=== PATIENT | female | born 1990 | race Caucasian/White ===

== ENCOUNTER 2024-04-08 12:25 | Inpatient (IN) | payer OTHER ==
[2024-04-08] MEDS ORDERED: DUONEB 0.5-3 MG/3 ml Neb IH ONE ×2 (12:37→15:28)
[2024-04-08] MEDS: DUONEB 0.5-3 MG/3 ml Neb IH ONE ×2 (12:52→15:46)
--- NOTE | 2024-04-08 12:52 | ERPHSYRPT ---
- History of Present Illness Time Seen by Provider: 04/08/24 12:32 Source: patient Exam Limitations: no limitations Patient Subjective Stated Complaint: cough and shortness of breath Triage Nursing Assessment: Pt brought self to the [facility] and was brought to the ER due to her low oxygen, hypertensive, tachycardic, hypoxic, denies pain, cough with whitish/yellowish sputum, reports mild chest pain, pulses normal, skin n/w/d, diminished lung sounds Physician History: 34-year-old female with history of tobacco use presented in the ER with complaints of increasing shortness of breath and cough for 2 weeks. Patient reports initially dry cough and now having clear to white frothy sputum moderate in amount. Patient reports feeling shortness of breath with activity. She went to [facility] where her oxygen saturation was in low 70s. She has a saturation of 79% on presentation in the ER with diffuse wheezing all over. Denies any history of asthma or COPD. No fever or chills reported. Denies any history of lower extremity swellings/DVT/PEs, use of control/hormone pills. Allergies/Adverse Reactions: cephalexin [From Keflex] Adverse Reaction (Verified 04/08/24 12:47) Vomiting Home Medications: No Reportable Medications [No Reported Medications] 04/08/24 [History] Travel Risk - International Travel Have you traveled outside of the country in past 3 weeks: No - Emerging Infectious Disease Are you exhibiting symptoms associated with any current EIDs: Yes Symptoms: Cough: New Onset, Shortness of Breath - Review of Systems Constitutional: Fatigue Eyes: No Symptoms Ears, Nose, & Throat: No Symptoms Respiratory: Cough, Dyspnea, Wheezing Cardiac: No Symptoms Abdominal/Gastrointestinal: No Symptoms Musculoskeletal: No Symptoms Skin: No Symptoms Neurological: No Symptoms Endocrine: No Symptoms Hematologic/Lymphatic: No Symptoms Significant Family History: no pertinent family hx - Female History Hx Now: No - Social History Smoking Status: Current every day smoker Exposure to second hand smoke: Yes Drug Use: none - Social Determinants of Health Will the patient participate in the screening: Yes Do you worry about a steady place to live?: No Do you have any problems with any of the following?: No known problems In the past 12 months,have you had to go without utilities?: No Transportation Issues: No Has anyone in your support network made you feel unsafe?: No Have you or anyone in your house had to go without enough: No - Nursing Vital Signs Nursing Vital Signs: Initial Vital Signs Temperature 97.6 F 04/08/24 12:30 Pulse Rate 107 H 04/08/24 12:30 Respiratory Rate 15 04/08/24 12:30 Blood Pressure 204/116 04/08/24 12:30 O2 Sat by Pulse Oximetry 80 L 04/08/24 12:30 Pain Scale Pain Intensity 0 - Physical Exam General Appearance: no apparent distress Eye Exam: PERRL/EOMI Ears, Nose, Throat Exam: hearing grossly normal, normal ENT inspection, normal pharynx Neck Exam: normal inspection, non-tender, supple, full range of motion Respiratory Exam: diminished breath sounds, rhonchi, wheezing Cardiovascular/Chest Exam: normal heart sounds, regular rate/rhythm Abdominal/Gastrointestinal Exam: soft, normal bowel sounds, No tenderness Extremity Exam: non-tender, normal range of motion Neurologic Exam: alert, oriented x 3, cooperative, cullet crusher II-XII nml as tested, sensation nml, No motor deficits Skin Exam: normal color SpO2 Interpretation: normal SpO2: 92 O2 Delivery: Room Air - Course EKG Interpreted by Me: RATE ([id number]), Sinus Rhythm, NORMAL AXIS, Non-specific ST Changes Ordered Tests: Active Orders 24 hr Category Date Time Status Bedrest ROUTINE Activity 04/08/24 16:46 Active Up With Assistance ROUTINE Activity 04/08/24 16:46 Active Call Admit Doctor for Orders ON ADMISSION Care 04/08/24 16:46 Active Risk Control Representative STAT Care 04/08/24 12:45 Completed Code Status Order ROUTINE Care 04/08/24 16:46 Active EKG-ER Only STAT Care 04/08/24 12:44 Completed Fall Protocol Q1H Care 04/08/24 16:46 Active Oxygen-ED Only Nasal Cannula 3 lpm Care 04/08/24 12:44 Completed POCT Glucose Check ACHS Care 04/08/24 16:[address] in Observation ROUTINE Care 04/08/24 16:46 Active Telemetry q6h Care 04/08/24 16:46 Active CHEST 1 VIEW (PORTABLE) Stat Exams 04/08/24 12:44 Completed CHEST WITH CONTRAST [CT] Stat Exams 04/08/24 13:53 Completed ARTERIAL BLOOD GASES Stat Lab 04/08/24 12:44 Completed BLOOD CULTURE Stat Lab 04/08/24 13:04 Received CBC W DIFF Stat Lab 04/08/24 12:50 Completed CMP Stat Lab 04/08/24 12:50 Completed D-DIMER QUANTITATIVE Stat Lab 04/08/24 12:50 Completed HCG QUALITATIVE, SERUM Stat Lab 04/08/24 12:57 Completed Lactic Acid Stat Lab 04/08/24 12:44 Completed MAGNESIUM Stat Lab 04/08/24 12:50 Completed NT PRO BNPII Stat Lab 04/08/24 12:50 Completed TROPONIN Q4H Lab 04/08/24 12:50 Completed TROPONIN Q4H Lab 04/08/24 18:10 Completed TROPONIN Q4H Lab 04/08/24 20:50 Completed Pulse Oximetry CONTINUOUS RT 04/08/24 16:46 Active Respiratory Therapy Assessment DAILY RT 04/08/24 12:52 Completed Respiratory Therapy Consult ONCE RT 04/08/24 16:46 Completed Transfer Order Routine Transfer 04/08/24 Completed Medication Summary Generic Name Dose Route Start Last Admin Trade Name Freq PRN Reason Stop Dose Admin Acetaminophen 650 mg 04/08/24 17:27 Acetaminophen 325 Mg Tablet PO 05/08/24 17:26 Q4H PRN PRN PAIN, FEVER, HEADACHE Albuterol/Ipratropium 3 ml 04/08/24 19:00 04/08/24 18:52 Ipratropium/Albuterol Sulfate 3 Ml Ampul.Neb IH 05/08/24 18:59 3 ml Q4HRT MICHAEL Administration Methylprednisolone Sodium 0 mg 04/08/24 22:00 Succinate 40 mg/ Sterile Water IV 05/08/24 21:59 1 ml Q8HT MICHAEL Enoxaparin Sodium 40 mg 04/09/24 10:00 Enoxaparin Sodium 40 Mg/0.4 Ml Syringe SQ 05/09/24 09:59 DAILY [facility] Ceftriaxone Sodium 1 gm in 100 mls @ 200 mls/hr 04/09/24 10:00 Rocephin 1 Gm / 100 Ml Nacl IV 05/09/24 09:59 Q24H10 MICHAEL Azithromycin 500 mg in 250 mls @ 250 mls/hr 04/09/24 10:00 Zithromax 500 Mg/ 250 Ml Nacl Premix IV 05/09/24 09:59 Q24H10 [facility] Lactated Ringer's 1,000 mls @ 75 mls/hr 04/08/24 20:30 04/08/24 20:19 Lactated Ringers IV 05/08/24 20:29 75 mls/hr .[id number] MICHAEL Administration Insulin Human Lispro 0 unit 04/08/24 17:27 04/08/24 20:06 Insulin Lispro 1 Unit SQ 05/08/24 17:26 20 unit UD PRN Administration HYPERGLYCEMIA Nicotine 21 mg 04/08/24 17:30 04/08/24 20:05 Nicotine 21 Mg/Patch Patch TOP 05/08/24 17:29 21 mg Q24H MICHAEL Administration Ondansetron HCl 4 mg 04/08/24 17:27 Ondansetron Hcl 4 Mg/2 Ml Vial IV 05/08/24 17:26 Q6H PRN PRN NAUSEA/VOMITING Discontinued Medications Generic Name Dose Route Start Last Admin Trade Name Freq PRN Reason Stop Dose Admin Acetaminophen 975 mg 04/08/24 16:00 04/08/24 16:17 Acetaminophen 325 Mg Tablet PO 04/08/24 16:01 975 mg STAT STA Administration Acetaminophen Confirm 04/08/24 16:17 Acetaminophen 325 Mg Tablet Administered 04/08/24 16:18 Dose 975 mg .ROUTE .STK-MED ONE Albuterol/Ipratropium Confirm 04/08/24 12:37 Ipratropium/Albuterol Sulfate 3 Ml Ampul.Neb Administered 04/08/24 12:38 Dose 3 ml IH .STK-MED ONE Albuterol/Ipratropium 3 ml 04/08/24 12:44 04/08/24 12:52 Ipratropium/Albuterol Sulfate 3 Ml Ampul.Neb IH 04/08/24 12:45 3 ml STAT ONE Administration Albuterol/Ipratropium Confirm 04/08/24 15:28 Ipratropium/Albuterol Sulfate 3 Ml Ampul.Neb Administered 04/08/24 15:29 Dose 3 ml IH .STK-MED ONE Albuterol/Ipratropium 3 ml 04/08/24 15:46 04/08/24 15:46 Ipratropium/Albuterol Sulfate 3 Ml Ampul.Neb IH 04/08/24 15:47 3 ml STAT ONE Administration Methylprednisolone Sodium 0 mg 04/08/24 12:44 04/08/24 12:56 Succinate 125 mg/ Sterile IV 04/08/24 12:45 125 mg Water 2 ml STAT ONE Administration Ceftriaxone Sodium 2 gm in 100 mls @ 200 mls/hr 04/08/24 15:06 04/08/24 15:42 Rocephin 2 Gm/100 Ml Nacl IV 04/08/24 15:35 Infused STAT ONE Infusion Azithromycin 500 mg in 250 mls @ 250 mls/hr 04/08/24 15:06 04/08/24 15:47 Zithromax 500 Mg/ 250 Ml Nacl Premix IV 04/08/24 16:05 250 mls/hr STAT STA 250 mls/hr Administration Ceftriaxone Sodium Confirm 04/08/24 15:11 Rocephin 2 Gm/100 Ml Nacl Administered 04/08/24 15:12 Dose 2 gm in 100 mls @ ud IV .STK-MED ONE Azithromycin Confirm 04/08/24 15:46 Zithromax 500 Mg/ 250 Ml Nacl Premix Administered 04/08/24 15:47 Dose 500 mg in 250 mls @ ud IV .STK-MED ONE Lactated Ringer's Confirm 04/08/24 19:55 Lactated Ringers Administered 04/08/24 19:56 Dose 1,000 mls @ ud IV .STK-MED ONE Lactated Ringer's 1,000 mls @ 100 mls/hr 04/08/24 20:30 04/08/24 20:06 Lactated Ringers IV 05/08/24 20:29 100 mls/hr .Q10H MICHAEL Administration Methylprednisolone Sodium Succinate Confirm 04/08/24 12:54 Methylprednis Sod Succ 125 Mg/2 Ml Vial Administered 04/08/24 12:55 Dose 125 mg .ROUTE .STK-MED ONE Sterile Water Confirm 04/08/24 12:54 Water For Injection,Sterile 10 Ml Vial Administered 04/08/24 12:55 Dose 10 ml IJ .STK-MED ONE Lab/Rad Data: Laboratory Result Diagrams 04/08/24 12:50 04/08/24 12:50 Laboratory Results 04/08/24 04/08/24 04/08/24 Range/Units 13:23 13:05 12:57 WBC (3.98-10.04) x10^3/uL RBC (3.93-5.22) x10^6/uL Hgb (11.2-15.7) g/dL Hct (34.1-44.9) % MCV (79.4-94.8) fL MCH (25.6-32.2) pg MCHC (32.2-35.5) g/dL RDW (11.7-14.4) % Plt Count (182-369) x10^3/uL MPV (9.4-12.3) fL Gran % (34.0-71.1) % Immature Gran % (Auto) (0.001-0.429) % Nucleat RBC Rel Count (0.00-0.2) % Eos # (Auto) (0.04-0.36) x10^3/uL Immature Gran # (Auto) (0.001-0.031) x10^3u/L Absolute Lymphs (auto) (1.18-3.74) x10^3/uL Absolute Monos (auto) (0.24-0.86) x10^3/uL Absolute Nucleated RBC (0.00-0.012) x10^3u/L Lymphocytes % (19.3-51.7) % Monocytes % (4.7-12.5) % Eosinophils % (0.7-5.8) % Basophils % (0.1-1.2) % Absolute Granulocytes (1.56-6.13) x10^3/uL Basophils # (0.01-0.08) x10^3/uL D-Dimer (0.0-0.50) mg/L Puncture Site pCO2 (35-45) mmHg pO2 (75-100) mmHg Base Excess (-2.0-2.0) O2 Saturation (94-100) g/dF ABG pH (7.35-7.45) ABG HCO3 (22-28) ABG O2 Sat (Measured) (95-100) % Albert Test A-a Gradient a/A Ratio Hemoglobin Carboxyhemoglobin (0.0-6.9) % THgb Methemoglobin (1.4-1.5) % Potassium (3.5-5.1) Temperature C POC O2 Flow Rate % Sodium (135-145) mmol/L Chloride (98-107) mmol/L Carbon Dioxide (22-30) mmol/L Anion Gap (5-15) MEQ/L BUN (7-17) mg/dL Creatinine (0.52-1.04) mg/dL Estimated GFR ML/MIN Glucose (74-106) mg/dL Hemoglobin A1c 8.77 H (4.5-6.0) % Lactic Acid (0.4-2.0) Calcium (8.4-10.2) mg/dL Magnesium (1.6-2.3) mg/dL Total Bilirubin (0.2-1.3) mg/dL AST (14-36) U/L ALT (0-35) U/L Alkaline Phosphatase (38-126) U/L Troponin I (0.000-0.033) ng/mL NT-Pro-B Natriuret Pep (<300) pg/mL Serum Total Protein (6.3-8.2) g/dL Albumin (3.5-5.0) g/dL Procalcitonin (0.030-0.080) ng/mL Serum HCG, Qual NEGATIVE (NEGATIVE) Influenza Type A Ag NEGATIVE (NEGATIVE) Influenza Type B Ag NEGATIVE (NEGATIVE) RSV (PCR) NEGATIVE (NEGATIVE) SARS-CoV-2 (PCR) NEGATIVE (NEGATIVE) 04/08/24 04/08/24 04/08/24 Range/Units 12:50 12:50 12:50 WBC (3.98-10.04) x10^3/uL RBC (3.93-5.22) x10^6/uL Hgb (11.2-15.7) g/dL Hct (34.1-44.9) % MCV (79.4-94.8) fL MCH (25.6-32.2) pg MCHC (32.2-35.5) g/dL RDW (11.7-14.4) % Plt Count (182-369) x10^3/uL MPV (9.4-12.3) fL Gran % (34.0-71.1) % Immature Gran % (Auto) (0.001-0.429) % Nucleat RBC Rel Count (0.00-0.2) % Eos # (Auto) (0.04-0.36) x10^3/uL Immature Gran # (Auto) (0.001-0.031) x10^3u/L Absolute Lymphs (auto) (1.18-3.74) x10^3/uL Absolute Monos (auto) (0.24-0.86) x10^3/uL Absolute Nucleated RBC (0.00-0.012) x10^3u/L Lymphocytes % (19.3-51.7) % Monocytes % (4.7-12.5) % Eosinophils % (0.7-5.8) % Basophils % (0.1-1.2) % Absolute Granulocytes (1.56-6.13) x10^3/uL Basophils # (0.01-0.08) x10^3/uL D-Dimer 0.62 H* (0.0-0.50) mg/L Puncture Site pCO2 (35-45) mmHg pO2 (75-100) mmHg Base Excess (-2.0-2.0) O2 Saturation (94-100) g/dF ABG pH (7.35-7.45) ABG HCO3 (22-28) ABG O2 Sat (Measured) (95-100) % Albert Test A-a Gradient a/A Ratio Hemoglobin Carboxyhemoglobin (0.0-6.9) % THgb Methemoglobin (1.4-1.5) % Potassium (3.5-5.1) Temperature C POC O2 Flow Rate % Sodium (135-145) mmol/L Chloride (98-107) mmol/L Carbon Dioxide (22-30) mmol/L Anion Gap (5-15) MEQ/L BUN (7-17) mg/dL Creatinine (0.52-1.04) mg/dL Estimated GFR ML/MIN Glucose (74-106) mg/dL Hemoglobin A1c (4.5-6.0) % Lactic Acid (0.4-2.0) Calcium (8.4-10.2) mg/dL Magnesium (1.6-2.3) mg/dL Total Bilirubin (0.2-1.3) mg/dL AST (14-36) U/L ALT (0-35) U/L Alkaline Phosphatase (38-126) U/L Troponin I < 0.012 (0.000-0.033) ng/mL NT-Pro-B Natriuret Pep (<300) pg/mL Serum Total Protein (6.3-8.2) g/dL Albumin (3.5-5.0) g/dL Procalcitonin 0.093 H (0.030-0.080) ng/mL Serum HCG, Qual (NEGATIVE) Influenza Type A Ag (NEGATIVE) Influenza Type B Ag (NEGATIVE) RSV (PCR) (NEGATIVE) SARS-CoV-2 (PCR) (NEGATIVE) 04/08/24 04/08/24 04/08/24 Range/Units 12:50 12:50 12:44 WBC 12.8 H (3.98-10.04) x10^3/uL RBC 5.12 (3.93-5.22) x10^6/uL Hgb 14.3 (11.2-15.7) g/dL Hct 43.5 (34.1-44.9) % MCV 85.0 (79.4-94.8) fL MCH 27.9 (25.6-32.2) pg MCHC 32.9 (32.2-35.5) g/dL RDW 13.6 (11.7-14.4) % Plt Count 263 (182-369) x10^3/uL MPV 9.3 L (9.4-12.3) fL Gran % 79.5 H (34.0-71.1) % Immature Gran % (Auto) 0.5 H (0.001-0.429) % Nucleat RBC Rel Count 0.0 (0.00-0.2) % Eos # (Auto) 0.16 (0.04-0.36) x10^3/uL Immature Gran # (Auto) 0.07 H (0.001-0.031) x10^3u/L Absolute Lymphs (auto) 1.76 (1.18-3.74) x10^3/uL Absolute Monos (auto) 0.60 (0.24-0.86) x10^3/uL Absolute Nucleated RBC 0.00 (0.00-0.012) x10^3u/L Lymphocytes % 13.8 L (19.3-51.7) % Monocytes % 4.7 (4.7-12.5) % Eosinophils % 1.3 (0.7-5.8) % Basophils % 0.2 (0.1-1.2) % Absolute Granulocytes 10.17 H (1.56-6.13) x10^3/uL Basophils # 0.03 (0.01-0.08) x10^3/uL D-Dimer (0.0-0.50) mg/L Puncture Site left brach pCO2 46 H (35-45) mmHg pO2 65 L (75-100) mmHg Base Excess 8.5 H (-2.0-2.0) O2 Saturation 90.0 L (94-100) g/dF ABG pH 7.47 H (7.35-7.45) ABG HCO3 33.5 H* (22-28) ABG O2 Sat (Measured) 93.5 L (95-100) % Albert Test n/a A-a Gradient 134 a/A Ratio 0.33 Hemoglobin 14.5 Carboxyhemoglobin 2.9 (0.0-6.9) % THgb Methemoglobin 0.8 L (1.4-1.5) % Potassium 4.0 3.6 (3.5-5.1) Temperature 37.0 C POC O2 Flow Rate 36 % Sodium 136 (135-145) mmol/L Chloride 99 (98-107) mmol/L Carbon Dioxide 28 (22-30) mmol/L Anion Gap 13.6 (5-15) MEQ/L BUN 9 (7-17) mg/dL Creatinine 0.62 (0.52-1.04) mg/dL Estimated GFR 119.0 ML/MIN Glucose 320 H (74-106) mg/dL Hemoglobin A1c (4.5-6.0) % Lactic Acid 1.6 (0.4-2.0) Calcium 9.2 (8.4-10.2) mg/dL Magnesium 1.9 (1.6-2.3) mg/dL Total Bilirubin 0.90 (0.2-1.3) mg/dL AST 39 H (14-36) U/L ALT 33 (0-35) U/L Alkaline Phosphatase 141 H (38-126) U/L Troponin I (0.000-0.033) ng/mL NT-Pro-B Natriuret Pep 223 (<300) pg/mL Serum Total Protein 7.7 (6.3-8.2) g/dL Albumin 4.2 (3.5-5.0) g/dL Procalcitonin (0.030-0.080) ng/mL Serum HCG, Qual (NEGATIVE) Influenza Type A Ag (NEGATIVE) Influenza Type B Ag (NEGATIVE) RSV (PCR) (NEGATIVE) SARS-CoV-2 (PCR) (NEGATIVE) - Progress Progress: improved, re-examined Air Movement: fair Progress Note: 04/08/24 15:38 34-year-old is evaluated in the ER for 2 weeks history of cough congestion with increased wheezing and was found to be hypoxic at [facility]. Patient was satting around 99% on presentation in the ER, placed on oxygen, given DuoNeb and Solu-Medrol, on reevaluation she is feeling better with improvement of saturation to low 90s on 4 L oxygen. Chest x-ray is negative. EKG is sinus rhythm with no ST elevations. Has a white count of 12, chemistries with negative troponins and otherwise fairly unremarkable except for elevated glucose of 320 and patient is not a known diabetic. Has elevated D-dimer but CTA ruled out pulmonary embolism, does have bilateral groundglass opacities and reactive lymphadenopathy. Given a dose of Rocephin and Zithromax. I believe patient probably had viral bronchitis and with 2 weeks history, does have some secondary bacterial colonization and would benefit with IV antibiotics along with steroids and neb treatments. Discussed with Dr. Ornelas, reviewed history, workup, agreed with admission. I have shared the results of workup with patient and family and plan of admission which they understand and agree. Blood Culture(s) Obtained: Yes Antibiotics given: Yes Discussed with Dr.: Other (Dr. Ornelas hospitalist) Will see patient in: hospital (observation) Counseled pt/family regarding: lab results, diagnosis, rad results Medical Desision Making - Independent Historian Additional History obtained from: Mother - Discussion of managment Care discussed with:: hospitalist Reviewed:: Test results Agreed on:: Treatment plan, place in obs Will see patient: in hospital - Diagnostic Testing Diagnostic test were ordered, analyzed, and reviewed by me: Yes Radiological Interpretation: Reviewed by me - Risk of complications The pt has a mod risk of morbidity or mortality based on: Need for prescription drug management The pt has a high risk of morbidity or mortality based on: Decision regarding hospitilization or escalation of hosp level of care - Departure Departure Disposition: Observation Clinical Impression: Acute hypoxic respiratory failure, Bilateral pneumonia, Hyperglycemia Condition: Stable Critical Care Time: No
[2024-04-08] MEDS ORDERED: Sterile H2O 10 ml IJ ONE ×2 (12:54→22:23)
[2024-04-08] MEDS ORDERED: solu-MEDROL ONE ×2 (12:54→22:22)
[2024-04-08] MEDS: solu-MEDROL 125 MG, Sterile H2O 10 ml 2 ML IV ONE (12:56)
[2024-04-08 13:19] LABS: Absolute Neutrophil Ct (ANC) 10.17 x10^3/uL (1.56-6.13); BASOPHIL % 0.2 % (0.1-1.2); Basophil (Absolute #) 0.03 x10^3/uL (0.01-0.08); Eosinophil % 1.3 % (0.7-5.8); Eosinophil (Absolute #) 0.16 x10^3/uL (0.04-0.36); Hematocrit 43.5 % (34.1-44.9); Hemoglobin 14.3 g/dL (11.2-15.7); IMMATURE GRAN # 0.07 x10^3u/L (0.001-0.031); IMMATURE GRAN % 0.5 % (0.001-0.429); Lymphocyte (Absolute #) 1.76 x10^3/uL (1.18-3.74); Lymphocytes % 13.8 % (19.3-51.7); Mean Corpuscular Hemoglobin 27.9 pg (25.6-32.2); Mean Corpuscular Hgb Concent. 32.9 g/dL (32.2-35.5); Mean Platelet Volume 9.3 fL (9.4-12.3); Monocytes % 4.7 % (4.7-12.5); Neutrophil % 79.5 % (34.0-71.1); Platelet Count 263 x10^3/uL (182-369); Red Blood Count 5.12 x10^6/uL (3.93-5.22); Red Cell Distribution Width 13.6 % (11.7-14.4); White Blood Count 12.8 x10^3/uL (3.98-10.04)
[2024-04-08 13:23] LABS: A-aADO2 134; ABG HEMOGLOBIN 14.5; ABG POTASSIUM 3.6 (3.5-5.1); ARTERIAL BLD GAS O2 SATURATION 93.5 % (95-100); ARTERIAL BLOOD GAS BASE EXCESS 8.5 (-2.0-2.0); ARTERIAL BLOOD GAS FIO2 36 %; ARTERIAL BLOOD GAS PCO2 46 mmHg (35-45); ARTERIAL BLOOD GAS PO2 65 mmHg (75-100); ARTERIAL BLOOD GAS pH 7.47 (7.35-7.45); CARBOXYHEMOGLOBIN 2.9 % THgb (0.0-6.9); HCO3- 33.5 (22-28); Lactic Acid 1.6 (0.4-2.0); Methhemoglobin 0.8 % (1.4-1.5); paO2 pAO1 0.33
[2024-04-08 13:32] LABS: HCG SERUM TEST NEGATIVE (NEGATIVE)
[2024-04-08 13:43] LABS: ALBUMIN 4.2 g/dL (3.5-5.0); ANION GAP 13.6 MEQ/L (5-15); BILIRUBIN,TOTAL 0.9 mg/dL (0.2-1.3); Calcium 9.2 mg/dL (8.4-10.2); Creatinine 1 0.62 mg/dL (0.52-1.04); MAGNESIUM 1.9 mg/dL (1.6-2.3); Total Protein 7.7 g/dL (6.3-8.2)
[2024-04-08 13:45] LABS: INFLUENZA A NEGATIVE (NEGATIVE); INFLUENZA B NEGATIVE (NEGATIVE); RESPIRATORY SYNCTIAL VIRUS NEGATIVE (NEGATIVE); SARS-CoV-2 Xpert Express NEGATIVE (NEGATIVE)
--- NOTE | 2024-04-08 13:57 | XRAY ---
Indication: Cough. Comparison: None Portable chest underinflated and clear. Heart borderline enlarged. Bony thorax intact with minimal levoscoliosis. Impression: Nonacute underinflated chest.
--- NOTE | 2024-04-08 14:56 | XRAY ---
Indication: Short of breath. Hypoxia. Pulmonary embolus. Multiple contiguous axial images obtained through the chest using 80 cc Isovue 370 contrast and PE protocol. Comparison: None Adequate opacification pulmonary arteries. Respiration artifact limits evaluation of the more distal lobar and segmental branches. No obvious pulmonary embolus. Heart borderline enlarged. Aorta is normal in course and caliber. Several prominent mediastinal and bilateral hilar lymph nodes, largest right suprahilar measuring 2.9 x 2.2 cm. Adenopathy presumed reactive though malignancy not completely excluded in right clinical setting. Lungs demonstrates diffuse bilateral groundglass airspace disease. No consolidation/effusion. Minimal right posterior gutter subsegmental atelectasis/scarring. Bony thorax intact with minimal degenerative changes throughout the spine. No pathologic axillary lymphadenopathy. Limited upper abdomen demonstrates fatty liver and 18 cm splenomegaly. Impression: 1. Respiration artifact limits pulmonary embolus evaluation. No obvious pulmonary embolus. 2. Diffuse bilateral groundglass airspace disease. 3. Prominent mediastinal and bilateral hilar lymphadenopathy presumed reactive. Malignancy not completely excluded in right clinical setting. 4. Incidental fatty liver and splenomegaly.
[2024-04-08] MEDS ORDERED: ROCEPHIN 2 GM/100 ML NACL 2 GM/100 ML IVPB IV ONE (15:11)
[2024-04-08] MEDS: ROCEPHIN 2 GM/100 ML NACL 2 GM/100 ML IVPB IV ONE (15:12)
[2024-04-08] MEDS ORDERED: Zithromax 500 MG/ 250 ML NaCl Premix 500 MG/250 ML IVPB IV ONE (15:46)
[2024-04-08] MEDS: Zithromax 500 MG/ 250 ML NaCl Premix 500 MG/250 ML IVPB IV STA (15:47)
[2024-04-08] MEDS: TYLENOL 325 MG PO STA (16:17)
[2024-04-08] MEDS ORDERED: TYLENOL 325 MG ONE (16:17)
--- NOTE | 2024-04-08 16:47 | PCM.HP ---
<ALAINA GARCIA - Last Filed: 04/08/24 17:14> History of Present Illness - Chief Complaint Chief Complaint: shortness of breath, cough Date: 04/08/24 History of Present Illness: is a 34 year old female with a pmhx of tobacco use presented to the ED 04/08/24 with complaints of productive cough for the past two weeks and progressive shortness of breath. Patient states that cough has been productive with thick yellow sputum. Today she has become more short of breath and having difficulty breathing with minimal exertion. She also reports chest pain with deep inhalation. She was seen in [facility] where her oxygen saturation was note d to be in the 70's. She is an everyday 1/2 PPD smoker but no h/o asthma or COPD. She denies fever, nausea, vomiting, diarrhea, abdominal pain, or headache. No recent sick contacts. She has been using OTC mucinex with no relief. Upon arrival to ED patient hypertensive, tachycardic, and hypoxic with spo2 at 80% on RA. EKG -RATE (94), Sinus Rhythm, NORMAL AXIS, Non-specific ST Changes. CXR non-acute. CT chest with no evidence of PE. Diffuse bilateral groundglass airspace disease. Prominent mediastinal and bilateral hilar lymphadenopathy presumed reactive. Malignancy not completely excluded in right clinical setting. Lab findings remarkable for leukocytosis with WBC at 12.8, DDimer elevated at 0.62 (negative PE on CT chest), and blood glucose level is 320. Patient treated with ceftriaxone, solumedrol, azithromycin, and duonebs in ED. Respiratory viral panel negative. - Review of Systems Constitutional: Weakness Eyes: No Symptoms Ears, Nose, & Throat: Nose Congestion Respiratory: Cough, Short Of Breath, Wheezing Cardiac: Chest Pain (with deep inhalation) Abdominal/Gastrointestinal: No Symptoms Genitourinary Symptoms: No Symptoms Musculoskeletal: No Symptoms Skin: No Symptoms Neurological: No Symptoms Psychological: No Symptoms Endocrine: No Symptoms Hematologic/Lymphatic: No Symptoms Immunological/Allergic: No Symptoms Medications & Allergies Home Medications: Home Medication List No Reportable Medications [No Reported Medications] 04/08/24 [History Confirmed 04/08/24] Allergies/Adverse Reactions: Allergies Allergy/AdvReac Type Severity Reaction Status Date / Time cephalexin [From Keflex] AdvReac Vomiting Verified 04/08/24 12:47 - Past Medical History Past Medical History: No - Female History Are you now?: No - Past Surgical History Past Surgical History: No Significant Family History: diabetes, hypertension - Social History Smoking Status: Current every day smoker Exposure to second hand smoke: Yes Drug Use: none - Social Determinants of Health Will the patient participate in the screening: Yes Do you worry about a steady place to live?: No Do you have any problems with any of the following?: No known problems In the past 12 months,have you had to go without utilities?: No Have you or anyone in your house had to go without enough: No Transportation Issues: No Has anyone in your support network made you feel unsafe?: No - Physical Exam Vital Signs: Vital Signs - 24 hr Temp Pulse Resp BP BP Pulse Ox 04/08/24 16:00 118 H 25 H 180/107 92 L 04/08/24 15:41 92 L 04/08/24 15:30 96 H 27 H 178/109 92 L 04/08/24 15:02 96 H 20 168/103 92 L 04/08/24 14:01 161/93 04/08/24 13:31 93 H 26 H 182/104 93 L 04/08/24 13:00 94 H 31 H 162/116 92 L 04/08/24 12:40 108 H 24 92 L 04/08/24 12:34 101 H 22 189/121 92 L 04/08/24 12:30 97.6 F 107 H 15 204/116 92 L General Appearance: mild distress Neurologic Exam: alert, oriented x 3, cooperative Eye Exam: PERRL/EOMI Ears, Nose, Throat Exam: normal ENT inspection Respiratory Exam: diminished breath sounds, crackles/rales, rhonchi, wheezing Cardiovascular Exam: regular rate/rhythm, normal heart sounds Pelvic Exam: not done Rectal Exam: deferred Back Exam: normal inspection Extremity Exam: normal inspection Skin Exam: normal color Results - Labs Lab/Micro Results: Lab Results-Last 24 Hours 04/08/24 04/08/24 04/08/24 Range/Units 12:44 12:50 12:50 WBC 12.8 H (3.98-10.04) x10^3/uL RBC 5.12 (3.93-5.22) x10^6/uL Hgb 14.3 (11.2-15.7) g/dL Hct 43.5 (34.1-44.9) % MCV 85.0 (79.4-94.8) fL MCH 27.9 (25.6-32.2) pg MCHC 32.9 (32.2-35.5) g/dL RDW 13.6 (11.7-14.4) % Plt Count 263 (182-369) x10^3/uL MPV 9.3 L (9.4-12.3) fL Gran % 79.5 H (34.0-71.1) % Immature Gran % (Auto) 0.5 H (0.001-0.429) % Nucleat RBC Rel Count 0.0 (0.00-0.2) % Eos # (Auto) 0.16 (0.04-0.36) x10^3/uL Immature Gran # (Auto) 0.07 H (0.001-0.031) x10^3u/L Absolute Lymphs (auto) 1.76 (1.18-3.74) x10^3/uL Absolute Monos (auto) 0.60 (0.24-0.86) x10^3/uL Absolute Nucleated RBC 0.00 (0.00-0.012) x10^3u/L Lymphocytes % 13.8 L (19.3-51.7) % Monocytes % 4.7 (4.7-12.5) % Eosinophils % 1.3 (0.7-5.8) % Basophils % 0.2 (0.1-1.2) % Absolute Granulocytes 10.17 H (1.56-6.13) x10^3/uL Basophils # 0.03 (0.01-0.08) x10^3/uL D-Dimer (0.0-0.50) mg/L Puncture Site left brach pCO2 46 H (35-45) mmHg pO2 65 L (75-100) mmHg Base Excess 8.5 H (-2.0-2.0) O2 Saturation 90.0 L (94-100) g/dF ABG pH 7.47 H (7.35-7.45) ABG HCO3 33.5 H* (22-28) ABG O2 Sat (Measured) 93.5 L (95-100) % Albert Test n/a A-a Gradient 134 a/A Ratio 0.33 Hemoglobin 14.5 Carboxyhemoglobin 2.9 (0.0-6.9) % THgb Methemoglobin 0.8 L (1.4-1.5) % Potassium 3.6 4.0 (3.5-5.1) Temperature 37.0 C POC O2 Flow Rate 36 % Sodium 136 (135-145) mmol/L Chloride 99 (98-107) mmol/L Carbon Dioxide 28 (22-30) mmol/L Anion Gap 13.6 (5-15) MEQ/L BUN 9 (7-17) mg/dL Creatinine 0.62 (0.52-1.04) mg/dL Estimated GFR 119.0 ML/MIN Glucose 320 H (74-106) mg/dL Lactic Acid 1.6 (0.4-2.0) Calcium 9.2 (8.4-10.2) mg/dL Magnesium 1.9 (1.6-2.3) mg/dL Total Bilirubin 0.90 (0.2-1.3) mg/dL AST 39 H (14-36) U/L ALT 33 (0-35) U/L Alkaline Phosphatase 141 H (38-126) U/L Troponin I (0.000-0.033) ng/mL NT-Pro-B Natriuret Pep 223 (<300) pg/mL Serum Total Protein 7.7 (6.3-8.2) g/dL Albumin 4.2 (3.5-5.0) g/dL Serum HCG, Qual (NEGATIVE) Influenza Type A Ag (NEGATIVE) Influenza Type B Ag (NEGATIVE) RSV (PCR) (NEGATIVE) SARS-CoV-2 (PCR) (NEGATIVE) 04/08/24 04/08/24 04/08/24 Range/Units 12:50 12:50 12:57 WBC (3.98-10.04) x10^3/uL RBC (3.93-5.22) x10^6/uL Hgb (11.2-15.7) g/dL Hct (34.1-44.9) % MCV (79.4-94.8) fL MCH (25.6-32.2) pg MCHC (32.2-35.5) g/dL RDW (11.7-14.4) % Plt Count (182-369) x10^3/uL MPV (9.4-12.3) fL Gran % (34.0-71.1) % Immature Gran % (Auto) (0.001-0.429) % Nucleat RBC Rel Count (0.00-0.2) % Eos # (Auto) (0.04-0.36) x10^3/uL Immature Gran # (Auto) (0.001-0.031) x10^3u/L Absolute Lymphs (auto) (1.18-3.74) x10^3/uL Absolute Monos (auto) (0.24-0.86) x10^3/uL Absolute Nucleated RBC (0.00-0.012) x10^3u/L Lymphocytes % (19.3-51.7) % Monocytes % (4.7-12.5) % Eosinophils % (0.7-5.8) % Basophils % (0.1-1.2) % Absolute Granulocytes (1.56-6.13) x10^3/uL Basophils # (0.01-0.08) x10^3/uL D-Dimer 0.62 H* (0.0-0.50) mg/L Puncture Site pCO2 (35-45) mmHg pO2 (75-100) mmHg Base Excess (-2.0-2.0) O2 Saturation (94-100) g/dF ABG pH (7.35-7.45) ABG HCO3 (22-28) ABG O2 Sat (Measured) (95-100) % Albert Test A-a Gradient a/A Ratio Hemoglobin Carboxyhemoglobin (0.0-6.9) % THgb Methemoglobin (1.4-1.5) % Potassium (3.5-5.1) Temperature C POC O2 Flow Rate % Sodium (135-145) mmol/L Chloride (98-107) mmol/L Carbon Dioxide (22-30) mmol/L Anion Gap (5-15) MEQ/L BUN (7-17) mg/dL Creatinine (0.52-1.04) mg/dL Estimated GFR ML/MIN Glucose (74-106) mg/dL Lactic Acid (0.4-2.0) Calcium (8.4-10.2) mg/dL Magnesium (1.6-2.3) mg/dL Total Bilirubin (0.2-1.3) mg/dL AST (14-36) U/L ALT (0-35) U/L Alkaline Phosphatase (38-126) U/L Troponin I < 0.012 (0.000-0.033) ng/mL NT-Pro-B Natriuret Pep (<300) pg/mL Serum Total Protein (6.3-8.2) g/dL Albumin (3.5-5.0) g/dL Serum HCG, Qual NEGATIVE (NEGATIVE) Influenza Type A Ag (NEGATIVE) Influenza Type B Ag (NEGATIVE) RSV (PCR) (NEGATIVE) SARS-CoV-2 (PCR) (NEGATIVE) 04/08/24 Range/Units 13:05 WBC (3.98-10.04) x10^3/uL RBC (3.93-5.22) x10^6/uL Hgb (11.2-15.7) g/dL Hct (34.1-44.9) % MCV (79.4-94.8) fL MCH (25.6-32.2) pg MCHC (32.2-35.5) g/dL RDW (11.7-14.4) % Plt Count (182-369) x10^3/uL MPV (9.4-12.3) fL Gran % (34.0-71.1) % Immature Gran % (Auto) (0.001-0.429) % Nucleat RBC Rel Count (0.00-0.2) % Eos # (Auto) (0.04-0.36) x10^3/uL Immature Gran # (Auto) (0.001-0.031) x10^3u/L Absolute Lymphs (auto) (1.18-3.74) x10^3/uL Absolute Monos (auto) (0.24-0.86) x10^3/uL Absolute Nucleated RBC (0.00-0.012) x10^3u/L Lymphocytes % (19.3-51.7) % Monocytes % (4.7-12.5) % Eosinophils % (0.7-5.8) % Basophils % (0.1-1.2) % Absolute Granulocytes (1.56-6.13) x10^3/uL Basophils # (0.01-0.08) x10^3/uL D-Dimer (0.0-0.50) mg/L Puncture Site pCO2 (35-45) mmHg pO2 (75-100) mmHg Base Excess (-2.0-2.0) O2 Saturation (94-100) g/dF ABG pH (7.35-7.45) ABG HCO3 (22-28) ABG O2 Sat (Measured) (95-100) % Albert Test A-a Gradient a/A Ratio Hemoglobin Carboxyhemoglobin (0.0-6.9) % THgb Methemoglobin (1.4-1.5) % Potassium (3.5-5.1) Temperature C POC O2 Flow Rate % Sodium (135-145) mmol/L Chloride (98-107) mmol/L Carbon Dioxide (22-30) mmol/L Anion Gap (5-15) MEQ/L BUN (7-17) mg/dL Creatinine (0.52-1.04) mg/dL Estimated GFR ML/MIN Glucose (74-106) mg/dL Lactic Acid (0.4-2.0) Calcium (8.4-10.2) mg/dL Magnesium (1.6-2.3) mg/dL Total Bilirubin (0.2-1.3) mg/dL AST (14-36) U/L ALT (0-35) U/L Alkaline Phosphatase (38-126) U/L Troponin I (0.000-0.033) ng/mL NT-Pro-B Natriuret Pep (<300) pg/mL Serum Total Protein (6.3-8.2) g/dL Albumin (3.5-5.0) g/dL Serum HCG, Qual (NEGATIVE) Influenza Type A Ag NEGATIVE (NEGATIVE) Influenza Type B Ag NEGATIVE (NEGATIVE) RSV (PCR) NEGATIVE (NEGATIVE) SARS-CoV-2 (PCR) NEGATIVE (NEGATIVE) - Radiology Impressions Radiology Exams & Impressions: Radiology Procedures Category Date Time Status CHEST 1 VIEW (PORTABLE) Stat Exams 04/08/24 12:44 Completed CHEST WITH CONTRAST [CT] Stat Exams 04/08/24 13:53 Completed - Other Procedures and Tests Respiratory Therapy 04/08/24 12:52 Respiratory Therapy Assessment DAILY Assessment/Plan (1) Sepsis Current Visit: Yes Status: Acute Assessment & Plan: -Meets criteria with tachycardia, WBC at 12.8, and pneumonia -CXR and CT reviewed -Supplemental oxygen with goal spo2 > 92% - 6L oxymask -LA reviewed and WNL -Resp viral panel negative -ceftriaxone/azithromycin started in ED -solumedrol -Strict I&O -RT eval and follow -Nebs prn (2) Bilateral pneumonia Current Visit: Yes Status: Acute Assessment & Plan: -see plan in Sepsis Code(s): J18.9 - PNEUMONIA, UNSPECIFIED ORGANISM (3) Smoker Current Visit: Yes Status: Acute Assessment & Plan: -1PPD smoker for > 10 yeard -Advised Cessation, will order nicotine patch Code(s): F17.200 - NICOTINE DEPENDENCE, UNSPECIFIED, UNCOMPLICATED (4) Acute hypoxic respiratory failure Current Visit: Yes Status: Acute Assessment & Plan: -see sepsis for plan 2/2 pneumonia Code(s): J96.01 - ACUTE RESPIRATORY FAILURE WITH HYPOXIA (5) Hyperglycemia Current Visit: Yes Status: Acute Assessment & Plan: -No history of DM -Check a1c -SSI -ADA diet -pending treatment course on A1c results VTE: lovenox PPI: protonix Dispo: 1-2 days Code(s): R73.9 - HYPERGLYCEMIA, UNSPECIFIED Telemedicine Encounter - Telemedicine Encounter Telemedicine Encounter: "The entirety of this encounter was performed via Telemedicine" This visit was performed using real-time audio and video connection between my location and thepatients locationwith the assistance of a surrogateat the patients location. Written or verbal consent was obtained from the patient/guardian to perform this visit using[facility] technology. Any patient questions regarding the telemedicine interaction were answered. <GREGORY GARCIA - Last Filed: 04/08/24 22:42> History of Present Illness - Chief Complaint History of Present Illness: is a 34 year old female. - Physical Exam Vital Signs: Vital Signs - 24 hr Temp Pulse Resp BP BP Pulse Ox 04/08/24 22:14 92 L 04/08/24 20:00 97.8 F 113 H 26 H 145/103 92 L 04/08/24 19:40 105 H 22 91 L 04/08/24 18:56 113 H 26 H 92 L 04/08/24 17:28 97.8 F 99 H 21 145/103 100 12/12/24 16:57 93 L 04/08/24 16:00 118 H 25 H 180/107 92 L 04/08/24 15:30 96 H 27 H 178/109 92 L 04/08/24 15:02 96 H 20 168/103 92 L 04/08/24 14:01 161/93 04/08/24 13:31 93 H 26 H 182/104 93 L 04/08/24 13:00 94 H 31 H 162/116 92 L 04/08/24 12:40 108 H 24 92 L 04/08/24 12:34 101 H 22 189/121 92 L 04/08/24 12:30 97.6 F 107 H 15 204/116 92 L Results - Labs Lab/Micro Results: Lab Results-Last 24 Hours 04/08/24 04/08/24 04/08/24 Range/Units 12:44 12:50 12:50 WBC 12.8 H (3.98-10.04) x10^3/uL RBC 5.12 (3.93-5.22) x10^6/uL Hgb 14.3 (11.2-15.7) g/dL Hct 43.5 (34.1-44.9) % MCV 85.0 (79.4-94.8) fL MCH 27.9 (25.6-32.2) pg MCHC 32.9 (32.2-35.5) g/dL RDW 13.6 (11.7-14.4) % Plt Count 263 (182-369) x10^3/uL MPV 9.3 L (9.4-12.3) fL Gran % 79.5 H (34.0-71.1) % Immature Gran % (Auto) 0.5 H (0.001-0.429) % Nucleat RBC Rel Count 0.0 (0.00-0.2) % Eos # (Auto) 0.16 (0.04-0.36) x10^3/uL Immature Gran # (Auto) 0.07 H (0.001-0.031) x10^3u/L Absolute Lymphs (auto) 1.76 (1.18-3.74) x10^3/uL Absolute Monos (auto) 0.60 (0.24-0.86) x10^3/uL Absolute Nucleated RBC 0.00 (0.00-0.012) x10^3u/L Lymphocytes % 13.8 L (19.3-51.7) % Monocytes % 4.7 (4.7-12.5) % Eosinophils % 1.3 (0.7-5.8) % Basophils % 0.2 (0.1-1.2) % Absolute Granulocytes 10.17 H (1.56-6.13) x10^3/uL Basophils # 0.03 (0.01-0.08) x10^3/uL D-Dimer (0.0-0.50) mg/L Puncture Site left brach pCO2 46 H (35-45) mmHg pO2 65 L (75-100) mmHg Base Excess 8.5 H (-2.0-2.0) O2 Saturation 90.0 L (94-100) g/dF ABG pH 7.47 H (7.35-7.45) ABG HCO3 33.5 H* (22-28) ABG O2 Sat (Measured) 93.5 L (95-100) % Albert Test n/a A-a Gradient 134 a/A Ratio 0.33 Hemoglobin 14.5 Carboxyhemoglobin 2.9 (0.0-6.9) % THgb Methemoglobin 0.8 L (1.4-1.5) % Potassium 3.6 4.0 (3.5-5.1) Temperature 37.0 C POC O2 Flow Rate 36 % Sodium 136 (135-145) mmol/L Chloride 99 (98-107) mmol/L Carbon Dioxide 28 (22-30) mmol/L Anion Gap 13.6 (5-15) MEQ/L BUN 9 (7-17) mg/dL Creatinine 0.62 (0.52-1.04) mg/dL Estimated GFR 119.0 ML/MIN Glucose 320 H (74-106) mg/dL POC Glucometer (50 to 500) mg/dL Hemoglobin A1c (4.5-6.0) % Lactic Acid 1.6 (0.4-2.0) Calcium 9.2 (8.4-10.2) mg/dL Magnesium 1.9 (1.6-2.3) mg/dL Total Bilirubin 0.90 (0.2-1.3) mg/dL AST 39 H (14-36) U/L ALT 33 (0-35) U/L Alkaline Phosphatase 141 H (38-126) U/L Troponin I (0.000-0.033) ng/mL NT-Pro-B Natriuret Pep 223 (<300) pg/mL Serum Total Protein 7.7 (6.3-8.2) g/dL Albumin 4.2 (3.5-5.0) g/dL Procalcitonin (0.030-0.080) ng/mL Serum HCG, Qual (NEGATIVE) Influenza Type A Ag (NEGATIVE) Influenza Type B Ag (NEGATIVE) RSV (PCR) (NEGATIVE) SARS-CoV-2 (PCR) (NEGATIVE) 04/08/24 04/08/24 04/08/24 Range/Units 12:50 12:50 12:50 WBC (3.98-10.04) x10^3/uL RBC (3.93-5.22) x10^6/uL Hgb (11.2-15.7) g/dL Hct (34.1-44.9) % MCV (79.4-94.8) fL MCH (25.6-32.2) pg MCHC (32.2-35.5) g/dL RDW (11.7-14.4) % Plt Count (182-369) x10^3/uL MPV (9.4-12.3) fL Gran % (34.0-71.1) % Immature Gran % (Auto) (0.001-0.429) % Nucleat RBC Rel Count (0.00-0.2) % Eos # (Auto) (0.04-0.36) x10^3/uL Immature Gran # (Auto) (0.001-0.031) x10^3u/L Absolute Lymphs (auto) (1.18-3.74) x10^3/uL Absolute Monos (auto) (0.24-0.86) x10^3/uL Absolute Nucleated RBC (0.00-0.012) x10^3u/L Lymphocytes % (19.3-51.7) % Monocytes % (4.7-12.5) % Eosinophils % (0.7-5.8) % Basophils % (0.1-1.2) % Absolute Granulocytes (1.56-6.13) x10^3/uL Basophils # (0.01-0.08) x10^3/uL D-Dimer 0.62 H* (0.0-0.50) mg/L Puncture Site pCO2 (35-45) mmHg pO2 (75-100) mmHg Base Excess (-2.0-2.0) O2 Saturation (94-100) g/dF ABG pH (7.35-7.45) ABG HCO3 (22-28) ABG O2 Sat (Measured) (95-100) % Albert Test A-a Gradient a/A Ratio Hemoglobin Carboxyhemoglobin (0.0-6.9) % THgb Methemoglobin (1.4-1.5) % Potassium (3.5-5.1) Temperature C POC O2 Flow Rate % Sodium (135-145) mmol/L Chloride (98-107) mmol/L Carbon Dioxide (22-30) mmol/L Anion Gap (5-15) MEQ/L BUN (7-17) mg/dL Creatinine (0.52-1.04) mg/dL Estimated GFR ML/MIN Glucose (74-106) mg/dL POC Glucometer (50 to 500) mg/dL Hemoglobin A1c (4.5-6.0) % Lactic Acid (0.4-2.0) Calcium (8.4-10.2) mg/dL Magnesium (1.6-2.3) mg/dL Total Bilirubin (0.2-1.3) mg/dL AST (14-36) U/L ALT (0-35) U/L Alkaline Phosphatase (38-126) U/L Troponin I < 0.012 (0.000-0.033) ng/mL NT-Pro-B Natriuret Pep (<300) pg/mL Serum Total Protein (6.3-8.2) g/dL Albumin (3.5-5.0) g/dL Procalcitonin 0.093 H (0.030-0.080) ng/mL Serum HCG, Qual (NEGATIVE) Influenza Type A Ag (NEGATIVE) Influenza Type B Ag (NEGATIVE) RSV (PCR) (NEGATIVE) SARS-CoV-2 (PCR) (NEGATIVE) 04/08/24 04/08/24 04/08/24 Range/Units 12:57 13:05 13:23 WBC (3.98-10.04) x10^3/uL RBC (3.93-5.22) x10^6/uL Hgb (11.2-15.7) g/dL Hct (34.1-44.9) % MCV (79.4-94.8) fL MCH (25.6-32.2) pg MCHC (32.2-35.5) g/dL RDW (11.7-14.4) % Plt Count (182-369) x10^3/uL MPV (9.4-12.3) fL Gran % (34.0-71.1) % Immature Gran % (Auto) (0.001-0.429) % Nucleat RBC Rel Count (0.00-0.2) % Eos # (Auto) (0.04-0.36) x10^3/uL Immature Gran # (Auto) (0.001-0.031) x10^3u/L Absolute Lymphs (auto) (1.18-3.74) x10^3/uL Absolute Monos (auto) (0.24-0.86) x10^3/uL Absolute Nucleated RBC (0.00-0.012) x10^3u/L Lymphocytes % (19.3-51.7) % Monocytes % (4.7-12.5) % Eosinophils % (0.7-5.8) % Basophils % (0.1-1.2) % Absolute Granulocytes (1.56-6.13) x10^3/uL Basophils # (0.01-0.08) x10^3/uL D-Dimer (0.0-0.50) mg/L Puncture Site pCO2 (35-45) mmHg pO2 (75-100) mmHg Base Excess (-2.0-2.0) O2 Saturation (94-100) g/dF ABG pH (7.35-7.45) ABG HCO3 (22-28) ABG O2 Sat (Measured) (95-100) % Albert Test A-a Gradient a/A Ratio Hemoglobin Carboxyhemoglobin (0.0-6.9) % THgb Methemoglobin (1.4-1.5) % Potassium (3.5-5.1) Temperature C POC O2 Flow Rate % Sodium (135-145) mmol/L Chloride (98-107) mmol/L Carbon Dioxide (22-30) mmol/L Anion Gap (5-15) MEQ/L BUN (7-17) mg/dL Creatinine (0.52-1.04) mg/dL Estimated GFR ML/MIN Glucose (74-106) mg/dL POC Glucometer (50 to 500) mg/dL Hemoglobin A1c 8.77 H (4.5-6.0) % Lactic Acid (0.4-2.0) Calcium (8.4-10.2) mg/dL Magnesium (1.6-2.3) mg/dL Total Bilirubin (0.2-1.3) mg/dL AST (14-36) U/L ALT (0-35) U/L Alkaline Phosphatase (38-126) U/L Troponin I (0.000-0.033) ng/mL NT-Pro-B Natriuret Pep (<300) pg/mL Serum Total Protein (6.3-8.2) g/dL Albumin (3.5-5.0) g/dL Procalcitonin (0.030-0.080) ng/mL Serum HCG, Qual NEGATIVE (NEGATIVE) Influenza Type A Ag NEGATIVE (NEGATIVE) Influenza Type B Ag NEGATIVE (NEGATIVE) RSV (PCR) NEGATIVE (NEGATIVE) SARS-CoV-2 (PCR) NEGATIVE (NEGATIVE) 04/08/24 04/08/24 04/08/24 Range/Units 18:10 19:45 20:50 WBC (3.98-10.04) x10^3/uL RBC (3.93-5.22) x10^6/uL Hgb (11.2-15.7) g/dL Hct (34.1-44.9) % MCV (79.4-94.8) fL MCH (25.6-32.2) pg MCHC (32.2-35.5) g/dL RDW (11.7-14.4) % Plt Count (182-369) x10^3/uL MPV (9.4-12.3) fL Gran % (34.0-71.1) % Immature Gran % (Auto) (0.001-0.429) % Nucleat RBC Rel Count (0.00-0.2) % Eos # (Auto) (0.04-0.36) x10^3/uL Immature Gran # (Auto) (0.001-0.031) x10^3u/L Absolute Lymphs (auto) (1.18-3.74) x10^3/uL Absolute Monos (auto) (0.24-0.86) x10^3/uL Absolute Nucleated RBC (0.00-0.012) x10^3u/L Lymphocytes % (19.3-51.7) % Monocytes % (4.7-12.5) % Eosinophils % (0.7-5.8) % Basophils % (0.1-1.2) % Absolute Granulocytes (1.56-6.13) x10^3/uL Basophils # (0.01-0.08) x10^3/uL D-Dimer (0.0-0.50) mg/L Puncture Site pCO2 (35-45) mmHg pO2 (75-100) mmHg Base Excess (-2.0-2.0) O2 Saturation (94-100) g/dF ABG pH (7.35-7.45) ABG HCO3 (22-28) ABG O2 Sat (Measured) (95-100) % Albert Test A-a Gradient a/A Ratio Hemoglobin Carboxyhemoglobin (0.0-6.9) % THgb Methemoglobin (1.4-1.5) % Potassium (3.5-5.1) Temperature C POC O2 Flow Rate % Sodium (135-145) mmol/L Chloride (98-107) mmol/L Carbon Dioxide (22-30) mmol/L Anion Gap (5-15) MEQ/L BUN (7-17) mg/dL Creatinine (0.52-1.04) mg/dL Estimated GFR ML/MIN Glucose (74-106) mg/dL POC Glucometer 528 H* (50 to 500) mg/dL Hemoglobin A1c (4.5-6.0) % Lactic Acid (0.4-2.0) Calcium (8.4-10.2) mg/dL Magnesium (1.6-2.3) mg/dL Total Bilirubin (0.2-1.3) mg/dL AST (14-36) U/L ALT (0-35) U/L Alkaline Phosphatase (38-126) U/L Troponin I < 0.012 < 0.012 (0.000-0.033) ng/mL NT-Pro-B Natriuret Pep (<300) pg/mL Serum Total Protein (6.3-8.2) g/dL Albumin (3.5-5.0) g/dL Procalcitonin (0.030-0.080) ng/mL Serum HCG, Qual (NEGATIVE) Influenza Type A Ag (NEGATIVE) Influenza Type B Ag (NEGATIVE) RSV (PCR) (NEGATIVE) SARS-CoV-2 (PCR) (NEGATIVE) 04/08/24 Range/Units 22:17 WBC (3.98-10.04) x10^3/uL RBC (3.93-5.22) x10^6/uL Hgb (11.2-15.7) g/dL Hct (34.1-44.9) % MCV (79.4-94.8) fL MCH (25.6-32.2) pg MCHC (32.2-35.5) g/dL RDW (11.7-14.4) % Plt Count (182-369) x10^3/uL MPV (9.4-12.3) fL Gran % (34.0-71.1) % Immature Gran % (Auto) (0.001-0.429) % Nucleat RBC Rel Count (0.00-0.2) % Eos # (Auto) (0.04-0.36) x10^3/uL Immature Gran # (Auto) (0.001-0.031) x10^3u/L Absolute Lymphs (auto) (1.18-3.74) x10^3/uL Absolute Monos (auto) (0.24-0.86) x10^3/uL Absolute Nucleated RBC (0.00-0.012) x10^3u/L Lymphocytes % (19.3-51.7) % Monocytes % (4.7-12.5) % Eosinophils % (0.7-5.8) % Basophils % (0.1-1.2) % Absolute Granulocytes (1.56-6.13) x10^3/uL Basophils # (0.01-0.08) x10^3/uL D-Dimer (0.0-0.50) mg/L Puncture Site pCO2 (35-45) mmHg pO2 (75-100) mmHg Base Excess (-2.0-2.0) O2 Saturation (94-100) g/dF ABG pH (7.35-7.45) ABG HCO3 (22-28) ABG O2 Sat (Measured) (95-100) % Albert Test A-a Gradient a/A Ratio Hemoglobin Carboxyhemoglobin (0.0-6.9) % THgb Methemoglobin (1.4-1.5) % Potassium (3.5-5.1) Temperature C POC O2 Flow Rate % Sodium (135-145) mmol/L Chloride (98-107) mmol/L Carbon Dioxide (22-30) mmol/L Anion Gap (5-15) MEQ/L BUN (7-17) mg/dL Creatinine (0.52-1.04) mg/dL Estimated GFR ML/MIN Glucose (74-106) mg/dL POC Glucometer 436 H (50 to 500) mg/dL Hemoglobin A1c (4.5-6.0) % Lactic Acid (0.4-2.0) Calcium (8.4-10.2) mg/dL Magnesium (1.6-2.3) mg/dL Total Bilirubin (0.2-1.3) mg/dL AST (14-36) U/L ALT (0-35) U/L Alkaline Phosphatase (38-126) U/L Troponin I (0.000-0.033) ng/mL NT-Pro-B Natriuret Pep (<300) pg/mL Serum Total Protein (6.3-8.2) g/dL Albumin (3.5-5.0) g/dL Procalcitonin (0.030-0.080) ng/mL Serum HCG, Qual (NEGATIVE) Influenza Type A Ag (NEGATIVE) Influenza Type B Ag (NEGATIVE) RSV (PCR) (NEGATIVE) SARS-CoV-2 (PCR) (NEGATIVE) - Radiology Impressions Radiology Exams & Impressions: Radiology Procedures Category Date Time Status CHEST 1 VIEW (PORTABLE) Stat Exams 04/08/24 12:44 Completed CHEST WITH CONTRAST [CT] Stat Exams 04/08/24 13:53 Completed - Other Procedures and Tests Respiratory Therapy 04/08/24 16:57 Oxygen Oxymask LPM 10 lpm 04/08/24 19:00 Respiratory Therapy Assessment DAILY Telemedicine Encounter - Telemedicine Encounter Telemedicine Encounter: "The entirety of this encounter was performed via Telemedicine" This visit was performed using real-time audio and video connection between my location and thepatients locationwith the assistance of a surrogateat the patients location. Written or verbal consent was obtained from the patient/guardian to perform this visit using[employer] technology. Any patient questions regarding the telemedicine interaction were answered. YON Encounter - YON Encounter Attestation YON Encounter Attestation: "IhkavinpersonalDREW Yoon andsoleiscussed pertinent aspects of their care with Alaina Anthony agree with the history, physical exam (any modifications based on my personal exam will be noted below), assessment, and plan as outlined in original note. Please see immediately below for my summary of findings and additional assessment and plan along with any meaningful corrections/explanations to the Subjective/Objective portions of the YON note will be noted." My portion of the encounter took place via telemedicine. Acute hypoxic respiratory failure with CT findings of bilateral ground glass opacities concerning for pneumonia. Patient never tested for COVID when symptoms started 2 weeks ago and is not vaccinated, I dont think the possibility of COVID pneumonia can be ruled out. Admit for oxygen support, IV steroids, nebs and IV antibiotics.
[2024-04-08] MEDS ORDERED: Zofran 4 MG/2 ML VIAL IV PRN (17:27)
[2024-04-08] MEDS: DUONEB 0.5-3 MG/3 ml Neb IH SCH (18:52)
[2024-04-08] MEDS ORDERED: Lactated Ringers 1,000 ML IV ONE (19:55)
[2024-04-08] MEDS: Nicoderm CQ 21 MG TOP SCH (20:05)
[2024-04-08] MEDS: HUMALOG SQ PRN (20:06)
[2024-04-08] MEDS: Lactated Ringers 1,000 ML IV SCH ×2 (20:06→20:19)
[2024-04-08] MEDS: solu-MEDROL 40 MG, Sterile H2O 10 ml 1 ML IV SCH (22:28)
--- NOTE | 2024-04-09 04:59 | PCM.NOTE ---
Date and Time: 04/09/24 0458 Subjective Assessment: is a 34 year old female with a pmhx of tobacco use presented to the ED 04/08/24 with complaints of productive cough for the past two weeks and progressive shortness of breath. Patient states that cough has been productive with thick yellow sputum. Today she has become more short of breath and having difficulty breathing with minimal exertion. She also reports chest pain with deep inhalation. She was seen in [facility] where her oxygen saturation was noted to be in the 70's. She is an everyday 1/2 PPD smoker but no h/o asthma or COPD. She denies fever, nausea, vomiting, diarrhea, abdominal pain, or headache. No recent sick contacts. She has been using OTC mucinex with no relief. Upon arrival to ED patient hypertensive, tachycardic, and hypoxic with spo2 at 80% on RA. EKG -RATE (94), Sinus Rhythm, NORMAL AXIS, Non-specific ST Changes. CXR non- acute. CT chest with no evidence of PE. Diffuse bilateral groundglass airspace disease. Prominent mediastinal and bilateral hilar lymphadenopathy presumed reactive. Malignancy not completely excluded in right clinical setting. Lab findings remarkable for leukocytosis with WBC at 12.8, DDimer elevated at 0.62 (negative PE on CT chest), and blood glucose level is 320. Patient treated with ceftriaxone, solumedrol, azithromycin, and duonebs in ED. Respiratory viral panel negative. Objective Data Vital Signs: Vital Signs - 24 hr Temp Pulse Resp BP BP BP Pulse Ox 04/09/24 03:00 97.4 F 102 H 20 134/82 100 04/09/24 02:55 101 H 22 91 L 04/08/24 23:49 97.5 F 104 H 22 166/92 81 L 04/08/24 22:14 92 L 04/08/24 20:00 97.8 F 113 H 26 H 145/103 92 L 04/08/24 19:40 105 H 22 91 L 04/08/24 18:56 113 H 26 H 92 L 04/08/24 17:28 97.8 F 99 H 21 145/103 100 04/08/24 16:57 93 L 04/08/24 16:00 118 H 25 H 180/107 92 L 04/08/24 15:30 96 H 27 H 178/109 92 L 04/08/24 15:02 96 H 20 168/103 92 L 04/08/24 14:01 161/93 04/08/24 13:31 93 H 26 H 182/104 93 L 04/08/24 13:00 94 H 31 H 162/116 92 L 04/08/24 12:40 108 H 24 92 L 04/08/24 12:34 101 H 22 189/121 92 L 04/08/24 12:30 97.6 F 107 H 15 204/116 92 L Pain Assessment - Last Documented Pain Intensity 0 Intake and Output: Intake & Output 04/06/24 04/07/24 04/08/24 04/09/24 11:59 11:59 11:59 11:59 Intake Total 1424 Balance 1424 Weight 128.1 kg Lab Results: Lab Results-Last 24 Hours 04/08/24 04/08/24 04/08/24 Range/Units 12:44 12:50 12:50 WBC 12.8 H (3.98-10.04) x10^3/uL RBC 5.12 (3.93-5.22) x10^6/uL Hgb 14.3 (11.2-15.7) g/dL Hct 43.5 (34.1-44.9) % MCV 85.0 (79.4-94.8) fL MCH 27.9 (25.6-32.2) pg MCHC 32.9 (32.2-35.5) g/dL RDW 13.6 (11.7-14.4) % Plt Count 263 (182-369) x10^3/uL MPV 9.3 L (9.4-12.3) fL Gran % 79.5 H (34.0-71.1) % Immature Gran % (Auto) 0.5 H (0.001-0.429) % Nucleat RBC Rel Count 0.0 (0.00-0.2) % Eos # (Auto) 0.16 (0.04-0.36) x10^3/uL Immature Gran # (Auto) 0.07 H (0.001-0.031) x10^3u/L Absolute Lymphs (auto) 1.76 (1.18-3.74) x10^3/uL Absolute Monos (auto) 0.60 (0.24-0.86) x10^3/uL Absolute Nucleated RBC 0.00 (0.00-0.012) x10^3u/L Lymphocytes % 13.8 L (19.3-51.7) % Monocytes % 4.7 (4.7-12.5) % Eosinophils % 1.3 (0.7-5.8) % Basophils % 0.2 (0.1-1.2) % Absolute Granulocytes 10.17 H (1.56-6.13) x10^3/uL Basophils # 0.03 (0.01-0.08) x10^3/uL D-Dimer (0.0-0.50) mg/L Puncture Site left brach pCO2 46 H (35-45) mmHg pO2 65 L (75-100) mmHg Base Excess 8.5 H (-2.0-2.0) O2 Saturation 90.0 L (94-100) g/dF ABG pH 7.47 H (7.35-7.45) ABG HCO3 33.5 H* (22-28) ABG O2 Sat (Measured) 93.5 L (95-100) % Albert Test n/a A-a Gradient 134 a/A Ratio 0.33 Hemoglobin 14.5 Carboxyhemoglobin 2.9 (0.0-6.9) % THgb Methemoglobin 0.8 L (1.4-1.5) % Potassium 3.6 4.0 (3.5-5.1) Temperature 37.0 C POC O2 Flow Rate 36 % Sodium 136 (135-145) mmol/L Chloride 99 (98-107) mmol/L Carbon Dioxide 28 (22-30) mmol/L Anion Gap 13.6 (5-15) MEQ/L BUN 9 (7-17) mg/dL Creatinine 0.62 (0.52-1.04) mg/dL Estimated GFR 119.0 ML/MIN Glucose 320 H (74-106) mg/dL POC Glucometer (50 to 500) mg/dL Hemoglobin A1c (4.5-6.0) % Lactic Acid 1.6 (0.4-2.0) Calcium 9.2 (8.4-10.2) mg/dL Magnesium 1.9 (1.6-2.3) mg/dL Total Bilirubin 0.90 (0.2-1.3) mg/dL AST 39 H (14-36) U/L ALT 33 (0-35) U/L Alkaline Phosphatase 141 H (38-126) U/L Troponin I (0.000-0.033) ng/mL NT-Pro-B Natriuret Pep 223 (<300) pg/mL Serum Total Protein 7.7 (6.3-8.2) g/dL Albumin 4.2 (3.5-5.0) g/dL Procalcitonin (0.030-0.080) ng/mL Serum HCG, Qual (NEGATIVE) Influenza Type A Ag (NEGATIVE) Influenza Type B Ag (NEGATIVE) RSV (PCR) (NEGATIVE) SARS-CoV-2 (PCR) (NEGATIVE) 04/08/24 04/08/24 04/08/24 Range/Units 12:50 12:50 12:50 WBC (3.98-10.04) x10^3/uL RBC (3.93-5.22) x10^6/uL Hgb (11.2-15.7) g/dL Hct (34.1-44.9) % MCV (79.4-94.8) fL MCH (25.6-32.2) pg MCHC (32.2-35.5) g/dL RDW (11.7-14.4) % Plt Count (182-369) x10^3/uL MPV (9.4-12.3) fL Gran % (34.0-71.1) % Immature Gran % (Auto) (0.001-0.429) % Nucleat RBC Rel Count (0.00-0.2) % Eos # (Auto) (0.04-0.36) x10^3/uL Immature Gran # (Auto) (0.001-0.031) x10^3u/L Absolute Lymphs (auto) (1.18-3.74) x10^3/uL Absolute Monos (auto) (0.24-0.86) x10^3/uL Absolute Nucleated RBC (0.00-0.012) x10^3u/L Lymphocytes % (19.3-51.7) % Monocytes % (4.7-12.5) % Eosinophils % (0.7-5.8) % Basophils % (0.1-1.2) % Absolute Granulocytes (1.56-6.13) x10^3/uL Basophils # (0.01-0.08) x10^3/uL D-Dimer 0.62 H* (0.0-0.50) mg/L Puncture Site pCO2 (35-45) mmHg pO2 (75-100) mmHg Base Excess (-2.0-2.0) O2 Saturation (94-100) g/dF ABG pH (7.35-7.45) ABG HCO3 (22-28) ABG O2 Sat (Measured) (95-100) % Albert Test A-a Gradient a/A Ratio Hemoglobin Carboxyhemoglobin (0.0-6.9) % THgb Methemoglobin (1.4-1.5) % Potassium (3.5-5.1) Temperature C POC O2 Flow Rate % Sodium (135-145) mmol/L Chloride (98-107) mmol/L Carbon Dioxide (22-30) mmol/L Anion Gap (5-15) MEQ/L BUN (7-17) mg/dL Creatinine (0.52-1.04) mg/dL Estimated GFR ML/MIN Glucose (74-106) mg/dL POC Glucometer (50 to 500) mg/dL Hemoglobin A1c (4.5-6.0) % Lactic Acid (0.4-2.0) Calcium (8.4-10.2) mg/dL Magnesium (1.6-2.3) mg/dL Total Bilirubin (0.2-1.3) mg/dL AST (14-36) U/L ALT (0-35) U/L Alkaline Phosphatase (38-126) U/L Troponin I < 0.012 (0.000-0.033) ng/mL NT-Pro-B Natriuret Pep (<300) pg/mL Serum Total Protein (6.3-8.2) g/dL Albumin (3.5-5.0) g/dL Procalcitonin 0.093 H (0.030-0.080) ng/mL Serum HCG, Qual (NEGATIVE) Influenza Type A Ag (NEGATIVE) Influenza Type B Ag (NEGATIVE) RSV (PCR) (NEGATIVE) SARS-CoV-2 (PCR) (NEGATIVE) 04/08/24 04/08/24 04/08/24 Range/Units 12:57 13:05 13:23 WBC (3.98-10.04) x10^3/uL RBC (3.93-5.22) x10^6/uL Hgb (11.2-15.7) g/dL Hct (34.1-44.9) % MCV (79.4-94.8) fL MCH (25.6-32.2) pg MCHC (32.2-35.5) g/dL RDW (11.7-14.4) % Plt Count (182-369) x10^3/uL MPV (9.4-12.3) fL Gran % (34.0-71.1) % Immature Gran % (Auto) (0.001-0.429) % Nucleat RBC Rel Count (0.00-0.2) % Eos # (Auto) (0.04-0.36) x10^3/uL Immature Gran # (Auto) (0.001-0.031) x10^3u/L Absolute Lymphs (auto) (1.18-3.74) x10^3/uL Absolute Monos (auto) (0.24-0.86) x10^3/uL Absolute Nucleated RBC (0.00-0.012) x10^3u/L Lymphocytes % (19.3-51.7) % Monocytes % (4.7-12.5) % Eosinophils % (0.7-5.8) % Basophils % (0.1-1.2) % Absolute Granulocytes (1.56-6.13) x10^3/uL Basophils # (0.01-0.08) x10^3/uL D-Dimer (0.0-0.50) mg/L Puncture Site pCO2 (35-45) mmHg pO2 (75-100) mmHg Base Excess (-2.0-2.0) O2 Saturation (94-100) g/dF ABG pH (7.35-7.45) ABG HCO3 (22-28) ABG O2 Sat (Measured) (95-100) % Albert Test A-a Gradient a/A Ratio Hemoglobin Carboxyhemoglobin (0.0-6.9) % THgb Methemoglobin (1.4-1.5) % Potassium (3.5-5.1) Temperature C POC O2 Flow Rate % Sodium (135-145) mmol/L Chloride (98-107) mmol/L Carbon Dioxide (22-30) mmol/L Anion Gap (5-15) MEQ/L BUN (7-17) mg/dL Creatinine (0.52-1.04) mg/dL Estimated GFR ML/MIN Glucose (74-106) mg/dL POC Glucometer (50 to 500) mg/dL Hemoglobin A1c 8.77 H (4.5-6.0) % Lactic Acid (0.4-2.0) Calcium (8.4-10.2) mg/dL Magnesium (1.6-2.3) mg/dL Total Bilirubin (0.2-1.3) mg/dL AST (14-36) U/L ALT (0-35) U/L Alkaline Phosphatase (38-126) U/L Troponin I (0.000-0.033) ng/mL NT-Pro-B Natriuret Pep (<300) pg/mL Serum Total Protein (6.3-8.2) g/dL Albumin (3.5-5.0) g/dL Procalcitonin (0.030-0.080) ng/mL Serum HCG, Qual NEGATIVE (NEGATIVE) Influenza Type A Ag NEGATIVE (NEGATIVE) Influenza Type B Ag NEGATIVE (NEGATIVE) RSV (PCR) NEGATIVE (NEGATIVE) SARS-CoV-2 (PCR) NEGATIVE (NEGATIVE) 04/08/24 04/08/24 04/08/24 Range/Units 18:10 19:45 20:50 WBC (3.98-10.04) x10^3/uL RBC (3.93-5.22) x10^6/uL Hgb (11.2-15.7) g/dL Hct (34.1-44.9) % MCV (79.4-94.8) fL MCH (25.6-32.2) pg MCHC (32.2-35.5) g/dL RDW (11.7-14.4) % Plt Count (182-369) x10^3/uL MPV (9.4-12.3) fL Gran % (34.0-71.1) % Immature Gran % (Auto) (0.001-0.429) % Nucleat RBC Rel Count (0.00-0.2) % Eos # (Auto) (0.04-0.36) x10^3/uL Immature Gran # (Auto) (0.001-0.031) x10^3u/L Absolute Lymphs (auto) (1.18-3.74) x10^3/uL Absolute Monos (auto) (0.24-0.86) x10^3/uL Absolute Nucleated RBC (0.00-0.012) x10^3u/L Lymphocytes % (19.3-51.7) % Monocytes % (4.7-12.5) % Eosinophils % (0.7-5.8) % Basophils % (0.1-1.2) % Absolute Granulocytes (1.56-6.13) x10^3/uL Basophils # (0.01-0.08) x10^3/uL D-Dimer (0.0-0.50) mg/L Puncture Site pCO2 (35-45) mmHg pO2 (75-100) mmHg Base Excess (-2.0-2.0) O2 Saturation (94-100) g/dF ABG pH (7.35-7.45) ABG HCO3 (22-28) ABG O2 Sat (Measured) (95-100) % Albert Test A-a Gradient a/A Ratio Hemoglobin Carboxyhemoglobin (0.0-6.9) % THgb Methemoglobin (1.4-1.5) % Potassium (3.5-5.1) Temperature C POC O2 Flow Rate % Sodium (135-145) mmol/L Chloride (98-107) mmol/L Carbon Dioxide (22-30) mmol/L Anion Gap (5-15) MEQ/L BUN (7-17) mg/dL Creatinine (0.52-1.04) mg/dL Estimated GFR ML/MIN Glucose (74-106) mg/dL POC Glucometer 528 H* (50 to 500) mg/dL Hemoglobin A1c (4.5-6.0) % Lactic Acid (0.4-2.0) Calcium (8.4-10.2) mg/dL Magnesium (1.6-2.3) mg/dL Total Bilirubin (0.2-1.3) mg/dL AST (14-36) U/L ALT (0-35) U/L Alkaline Phosphatase (38-126) U/L Troponin I < 0.012 < 0.012 (0.000-0.033) ng/mL NT-Pro-B Natriuret Pep (<300) pg/mL Serum Total Protein (6.3-8.2) g/dL Albumin (3.5-5.0) g/dL Procalcitonin (0.030-0.080) ng/mL Serum HCG, Qual (NEGATIVE) Influenza Type A Ag (NEGATIVE) Influenza Type B Ag (NEGATIVE) RSV (PCR) (NEGATIVE) SARS-CoV-2 (PCR) (NEGATIVE) 04/08/24 Range/Units 22:17 WBC (3.98-10.04) x10^3/uL RBC (3.93-5.22) x10^6/uL Hgb (11.2-15.7) g/dL Hct (34.1-44.9) % MCV (79.4-94.8) fL MCH (25.6-32.2) pg MCHC (32.2-35.5) g/dL RDW (11.7-14.4) % Plt Count (182-369) x10^3/uL MPV (9.4-12.3) fL Gran % (34.0-71.1) % Immature Gran % (Auto) (0.001-0.429) % Nucleat RBC Rel Count (0.00-0.2) % Eos # (Auto) (0.04-0.36) x10^3/uL Immature Gran # (Auto) (0.001-0.031) x10^3u/L Absolute Lymphs (auto) (1.18-3.74) x10^3/uL Absolute Monos (auto) (0.24-0.86) x10^3/uL Absolute Nucleated RBC (0.00-0.012) x10^3u/L Lymphocytes % (19.3-51.7) % Monocytes % (4.7-12.5) % Eosinophils % (0.7-5.8) % Basophils % (0.1-1.2) % Absolute Granulocytes (1.56-6.13) x10^3/uL Basophils # (0.01-0.08) x10^3/uL D-Dimer (0.0-0.50) mg/L Puncture Site pCO2 (35-45) mmHg pO2 (75-100) mmHg Base Excess (-2.0-2.0) O2 Saturation (94-100) g/dF ABG pH (7.35-7.45) ABG HCO3 (22-28) ABG O2 Sat (Measured) (95-100) % Albert Test A-a Gradient a/A Ratio Hemoglobin Carboxyhemoglobin (0.0-6.9) % THgb Methemoglobin (1.4-1.5) % Potassium (3.5-5.1) Temperature C POC O2 Flow Rate % Sodium (135-145) mmol/L Chloride (98-107) mmol/L Carbon Dioxide (22-30) mmol/L Anion Gap (5-15) MEQ/L BUN (7-17) mg/dL Creatinine (0.52-1.04) mg/dL Estimated GFR ML/MIN Glucose (74-106) mg/dL POC Glucometer 436 H (50 to 500) mg/dL Hemoglobin A1c (4.5-6.0) % Lactic Acid (0.4-2.0) Calcium (8.4-10.2) mg/dL Magnesium (1.6-2.3) mg/dL Total Bilirubin (0.2-1.3) mg/dL AST (14-36) U/L ALT (0-35) U/L Alkaline Phosphatase (38-126) U/L Troponin I (0.000-0.033) ng/mL NT-Pro-B Natriuret Pep (<300) pg/mL Serum Total Protein (6.3-8.2) g/dL Albumin (3.5-5.0) g/dL Procalcitonin (0.030-0.080) ng/mL Serum HCG, Qual (NEGATIVE) Influenza Type A Ag (NEGATIVE) Influenza Type B Ag (NEGATIVE) RSV (PCR) (NEGATIVE) SARS-CoV-2 (PCR) (NEGATIVE) Radiology Exams: Radiology Procedures Category Date Time Status CHEST 1 VIEW (PORTABLE) Stat Exams 04/08/24 12:44 Completed CHEST WITH CONTRAST [CT] Stat Exams 04/08/24 13:53 Completed Multi-Disciplinary Progress Notes: Multi-Disciplinary Progress Notes 04/09/24 04:47 Respiratory Note by Livia Ng PATIENT DISPLACED OXYMASK WHILE ASLEEP--SPO2 78%. REPOSITIONED OXYMASK AND ENCOURAGED DEEP BREATHING, SPO2 INCREASED TO 91%. NO OTHER COMPLICATIONS. NURSE NOTIFIED. Initialized on 04/09/24 04:47 - END OF NOTE 04/08/24 13:44 Respiratory Note by Alisha Miller pt placed on 6L oxymask due to pt complaining of the nasal cannula burning her nose and pts po2 65. Initialized on 04/08/24 13:44 - END OF NOTE Assessment/Plan (1) Sepsis Current Visit: Yes Status: Acute Assessment & Plan: 1) Sepsis Current Visit: Yes Status: Acute Assessment & Plan: -Meets criteria with tachycardia, WBC at 12.8, and pneumonia -CXR and CT reviewed -Supplemental oxygen with goal spo2 > 92% - 6L oxymask -LA reviewed and WNL -Resp viral panel negative -ceftriaxone/azithromycin started in ED -solumedrol -Strict I&O -RT eval and follow -Nebs prn (2) Bilateral pneumonia Current Visit: Yes Status: Acute Assessment & Plan: -see plan in Sepsis Code(s): J18.9 - PNEUMONIA, UNSPECIFIED ORGANISM (3) Smoker Current Visit: Yes Status: Acute Assessment & Plan: -1PPD smoker for > 10 yeard -Advised Cessation, will order nicotine patch Code(s): F17.200 - NICOTINE DEPENDENCE, UNSPECIFIED, UNCOMPLICATED (4) Acute hypoxic respiratory failure Current Visit: Yes Status: Acute Assessment & Plan: -see sepsis for plan 2/2 pneumonia Code(s): J96.01 - ACUTE RESPIRATORY FAILURE WITH HYPOXIA (5) Hyperglycemia Current Visit: Yes Status: Acute Assessment & Plan: -No history of DM -Check a1c -SSI -ADA diet -pending treatment course on A1c results VTE: lovenox PPI: protonix Dispo: 1-2 days Code(s): R73.9 - HYPERGLY (2) Bilateral pneumonia Current Visit: Yes Status: Acute Code(s): J18.9 - PNEUMONIA, UNSPECIFIED ORGANISM (3) Smoker Current Visit: Yes Status: Acute Code(s): F17.200 - NICOTINE DEPENDENCE, UNSPECIFIED, UNCOMPLICATED (4) Acute hypoxic respiratory failure Current Visit: Yes Status: Acute Code(s): J96.01 - ACUTE RESPIRATORY FAILURE WITH HYPOXIA (5) Hyperglycemia Current Visit: Yes Status: Acute Code(s): R73.9 - HYPERGLYCEMIA, UNSPECIFIED
[2024-04-09 05:31] LABS: BASOPHIL % 0.2 % (0.1-1.2); Basophil (Absolute #) 0.02 x10^3/uL (0.01-0.08); Eosinophil (Absolute #) 0 x10^3/uL (0.04-0.36); Hemoglobin 13.2 g/dL (11.2-15.7); IMMATURE GRAN # 0.07 x10^3u/L (0.001-0.031); IMMATURE GRAN % 0.6 % (0.001-0.429); Lymphocyte (Absolute #) 0.83 x10^3/uL (1.18-3.74); Lymphocytes % 7.6 % (19.3-51.7); Mean Cell Volume 86.7 fL (79.4-94.8); Mean Corpuscular Hemoglobin 27.9 pg (25.6-32.2); Mean Corpuscular Hgb Concent. 32.2 g/dL (32.2-35.5); Mean Platelet Volume 9.2 fL (9.4-12.3); Monocyte (Absolute #) 0.13 x10^3/uL (0.24-0.86); Monocytes % 1.2 % (4.7-12.5); Neutrophil % 90.4 % (34.0-71.1); Platelet Count 256 x10^3/uL (182-369); Red Blood Count 4.73 x10^6/uL (3.93-5.22); Red Cell Distribution Width 13.4 % (11.7-14.4)
[2024-04-09 06:04] LABS: ALBUMIN 3.9 g/dL (3.5-5.0); ANION GAP 10.6 MEQ/L (5-15); BILIRUBIN,TOTAL 0.5 mg/dL (0.2-1.3); Creatinine 1 0.61 mg/dL (0.52-1.04); EST GLOMERULAR FILTRATION RATE 119.5 ML/MIN; Potassium 4.1 mmol/L (3.5-5.1); Total Protein 7.4 g/dL (6.3-8.2)
[2024-04-09 07:41] LABS: A-aADO2 302; ABG HEMOGLOBIN 13.9; ABG POTASSIUM 4.4 (3.5-5.1); ABG SITE RIGHT BRACHIAL; ARTERIAL BLD GAS O2 SATURATION 88.2 % (95-100); ARTERIAL BLOOD GAS BASE EXCESS 7.8 (-2.0-2.0); ARTERIAL BLOOD GAS FIO2 60 %; ARTERIAL BLOOD GAS PCO2 54 mmHg (35-45); ARTERIAL BLOOD GAS PO2 58 mmHg (75-100); ARTERIAL BLOOD GAS pH 7.41 (7.35-7.45); CARBOXYHEMOGLOBIN 1.6 % THgb (0.0-6.9); HCO3- 34.2 (22-28); Methhemoglobin 0.9 % (1.4-1.5); paO2 pAO1 0.16
[2024-04-09 07:59] VITALS: TEMP 97.9
[2024-04-09] MEDS ORDERED: PROVENTIL 2.5 MG/3 ML NEB IH ONE (09:11)
[2024-04-09] MEDS: PROVENTIL 2.5 MG/3 ML NEB IH PRN (09:15)
[2024-04-09 09:27] LABS: A-aADO2 509; ABG HEMOGLOBIN 13.8; ARTERIAL BLD GAS O2 SATURATION 94.2 % (95-100); ARTERIAL BLOOD GAS BASE EXCESS 5.2 (-2.0-2.0); ARTERIAL BLOOD GAS FIO2 90 %; ARTERIAL BLOOD GAS PCO2 52 mmHg (35-45); ARTERIAL BLOOD GAS PO2 68 mmHg (75-100); ARTERIAL BLOOD GAS VENT MODE HFOV; ARTERIAL BLOOD GAS pH 7.39 (7.35-7.45); CARBOXYHEMOGLOBIN 1.9 % THgb (0.0-6.9); HCO3- 31.5 (22-28); HGB O2 SAT 91.8 g/dF (94-100); Methhemoglobin 0.6 % (1.4-1.5); paO2 pAO1 0.12
[2024-04-09 09:28] LABS: ABG SITE RIGHT BRACHIAL
[2024-04-09] MEDS: Ativan 0.5 MG PO ONE ×2 (09:40→15:38)
[2024-04-09] MEDS: Lantus Insulin SQ SCH (09:57)
[2024-04-09] MEDS: ROCEPHIN 1 GM / 100 ML NaCl 1 GM/100 ML IVPB IV SCH (11:00)
[2024-04-09] MEDS: ENOXAPARIN SODIUM SQ SCH (11:00)
[2024-04-09] MEDS: Zithromax 500 MG/ 250 ML NaCl Premix 500 MG/250 ML IVPB IV SCH (12:52)
[2024-04-09 13:02] VITALS: BP 125/79
[2024-04-09] MEDS: TYLENOL 325 MG PO PRN (14:03)
--- NOTE | 2024-04-09 14:09 | PCM.DS ---
Discharge Summary Date of Admission: 04/08/24 16:30 Date of Discharge: 04/09/24 Admitting Physician: GREGORY GARCIA MD Consults: Consults on Case 04/09/24 08:02 Nutritional Consult ROUTINE Primary Care Provider: TOM ZAPATA <ALAINA GARCIA - Last Filed: 04/09/24 14:22> Date of Admission: 04/08/24 16:30 Admitting Physician: GREGORY GARCIA MD Consults: Consults on Case 04/09/24 08:02 Nutritional Consult ROUTINE Primary Care Provider: TOM ZPAATA <GREGORY GARCIA - Last Filed: 04/09/24 18:40> Allergies <ALAINA GARCIA - Last Filed: 04/09/24 14:22> <GREGORY GARCIA - Last Filed: 04/09/24 18:40> Allergies cephalexin [From Keflex] Adverse Reaction (Verified 04/08/24 12:47) Vomiting Hospital Summary - Hospital Course Hospital Course: is a 34 year old female with a pmhx of tobacco use presented to the ED 04/08/24 with complaints of productive cough for the past two weeks and pr ogressive shortness of breath. Patient states that cough has been productive with thick yellow sputum. Today she has become more short of breath and having difficulty breathing with minimal exertion. She also reports chest pain with deep inhalation. She was seen in [facility] where her oxygen saturation was noted to be in the 70's. She is an everyday 1/2 PPD smoker but no h/o asthma or COPD. She denies fever, nausea, vomiting, diarrhea, abdominal pain, or headache. No recent sick contacts. She has been using OTC mucinex with no relief. Upon arrival to ED patient hypertensive, tachycardic, and hypoxic with spo2 at 80% on RA. EKG -RATE (94), Sinus Rhythm, NORMAL AXIS, Non-specific ST Changes. CXR non- acute. CT chest with no evidence of PE. Diffuse bilateral groundglass airspace disease. Prominent mediastinal and bilateral hilar lymphadenopathy presumed reactive. Malignancy not completely excluded in right clinical setting. Lab findings remarkable for leukocytosis with WBC at 12.8, DDimer elevated at 0.62 (negative PE on CT chest), and blood glucose level is 320. Patient treated with ceftriaxone, solumedrol, azithromycin, and duonebs in ED. Respiratory viral panel negative. Patient requiring bipap w/AVAPS. Dr. Cole contacted and unavailable for consult - reviewed CT, ABGS, and oxygenation requirements - he is recommending transfer to higher level of care with pulmonology onsite - ICU. [facility] pending bed availability. Patient also with new onset t2DM - currently on SSI and lantus - will need set up with endocrinology with diabetic supplies and metformin on discharge. Discharge Note Latest Assessment & Plan 1) Sepsis Current Visit: Yes Status: Acute Assessment & Plan: -Meets criteria with tachycardia, WBC at 12.8, and pneumonia -CXR and CT reviewed -Supplemental oxygen with goal spo2 > 92% - 6L oxymask -LA reviewed and WNL -Resp viral panel negative -ceftriaxone/azithromycin started in ED -solumedrol -Strict I&O -RT eval and follow -Nebs prn Type 2 diabetes -new onset -A1c 8.77 -will need diabetic teaching/supplies/medication on discharge -SSI/15 units glargine/ 8 units mealtime insulin (2) Bilateral pneumonia Current Visit: Yes Status: Acute Assessment & Plan: -see plan in Sepsis Code(s): J18.9 - PNEUMONIA, UNSPECIFIED ORGANISM (3) Smoker Current Visit: Yes Status: Acute Assessment & Plan: -1PPD smoker for > 10 yeard -Advised Cessation, will order nicotine patch Code(s): F17.200 - NICOTINE DEPENDENCE, UNSPECIFIED, UNCOMPLICATED (4) Acute hypoxic respiratory failure Current Visit: Yes Status: Acute Assessment & Plan: -see sepsis for plan 2/2 pneumonia Code(s): J96.01 - ACUTE RESPIRATORY FAILURE WITH HYPOXIA (5) Hyperglycemia Current Visit: Yes Status: Acute Assessment & Plan: -No history of DM -Check a1c -SSI -ADA diet -pending treatment course on A1c results I spent 35 minutes [id number] with the patient on the day of discharge performing discharge exam, discussing hospital stay and discharge instructions with patient and caregivers, preparation of discharge records, prescriptions & referral forms and addressing any questions/concerns the patient had as documented above. - Vitals & Intake/Output Vital Signs: Vital Signs Temperature 97.9 F 04/09/24 07:00 Pulse Rate 90 04/09/24 13:01 Respiratory Rate 17 04/09/24 13:01 Blood Pressure 125/79 04/09/24 13:01 O2 Sat by Pulse Oximetry 95 04/09/24 13:01 Intake & Output: Intake & Output 04/07/24 04/08/24 04/09/24 04/10/24 11:59 11:59 11:59 11:59 Intake Total 1784 Balance 1784 Weight 128.3 kg - Lab Result Diagrams: 04/09/24 05:28 04/09/24 05:28 Lab Results-Last 24 Hrs: Lab Results-Last 24 Hours 04/08/24 04/08/24 04/08/24 Range/Units 12:50 13:23 18:10 WBC (3.98-10.04) x10^3/uL RBC (3.93-5.22) x10^6/uL Hgb (11.2-15.7) g/dL Hct (34.1-44.9) % MCV (79.4-94.8) fL MCH (25.6-32.2) pg MCHC (32.2-35.5) g/dL RDW (11.7-14.4) % Plt Count (182-369) x10^3/uL MPV (9.4-12.3) fL Gran % (34.0-71.1) % Immature Gran % (Auto) (0.001-0.429) % Nucleat RBC Rel Count (0.00-0.2) % Eos # (Auto) (0.04-0.36) x10^3/uL Immature Gran # (Auto) (0.001-0.031) x10^3u/L Absolute Lymphs (auto) (1.18-3.74) x10^3/uL Absolute Monos (auto) (0.24-0.86) x10^3/uL Absolute Nucleated RBC (0.00-0.012) x10^3u/L Lymphocytes % (19.3-51.7) % Monocytes % (4.7-12.5) % Eosinophils % (0.7-5.8) % Basophils % (0.1-1.2) % Absolute Granulocytes (1.56-6.13) x10^3/uL Basophils # (0.01-0.08) x10^3/uL Puncture Site pCO2 (35-45) mmHg pO2 (75-100) mmHg Base Excess (-2.0-2.0) O2 Saturation (94-100) g/dF ABG pH (7.35-7.45) ABG HCO3 (22-28) ABG O2 Sat (Measured) (95-100) % Albert Test A-a Gradient a/A Ratio Hemoglobin Carboxyhemoglobin (0.0-6.9) % THgb Methemoglobin (1.4-1.5) % Temperature C POC O2 Flow Rate % Vent Mode Sodium (135-145) mmol/L Potassium (3.5-5.1) mmol/L Chloride (98-107) mmol/L Carbon Dioxide (22-30) mmol/L Anion Gap (5-15) MEQ/L BUN (7-17) mg/dL Creatinine (0.52-1.04) mg/dL Estimated GFR ML/MIN Glucose (74-106) mg/dL POC Glucometer (50 to 500) mg/dL Hemoglobin A1c 8.77 H (4.5-6.0) % Calcium (8.4-10.2) mg/dL Total Bilirubin (0.2-1.3) mg/dL AST (14-36) U/L ALT (0-35) U/L Alkaline Phosphatase (38-126) U/L Troponin I < 0.012 (0.000-0.033) ng/mL Serum Total Protein (6.3-8.2) g/dL Albumin (3.5-5.0) g/dL Procalcitonin 0.093 H (0.030-0.080) ng/mL 04/08/24 04/08/24 04/08/24 Range/Units 19:45 20:50 22:17 WBC (3.98-10.04) x10^3/uL RBC (3.93-5.22) x10^6/uL Hgb (11.2-15.7) g/dL Hct (34.1-44.9) % MCV (79.4-94.8) fL MCH (25.6-32.2) pg MCHC (32.2-35.5) g/dL RDW (11.7-14.4) % Plt Count (182-369) x10^3/uL MPV (9.4-12.3) fL Gran % (34.0-71.1) % Immature Gran % (Auto) (0.001-0.429) % Nucleat RBC Rel Count (0.00-0.2) % Eos # (Auto) (0.04-0.36) x10^3/uL Immature Gran # (Auto) (0.001-0.031) x10^3u/L Absolute Lymphs (auto) (1.18-3.74) x10^3/uL Absolute Monos (auto) (0.24-0.86) x10^3/uL Absolute Nucleated RBC (0.00-0.012) x10^3u/L Lymphocytes % (19.3-51.7) % Monocytes % (4.7-12.5) % Eosinophils % (0.7-5.8) % Basophils % (0.1-1.2) % Absolute Granulocytes (1.56-6.13) x10^3/uL Basophils # (0.01-0.08) x10^3/uL Puncture Site pCO2 (35-45) mmHg pO2 (75-100) mmHg Base Excess (-2.0-2.0) O2 Saturation (94-100) g/dF ABG pH (7.35-7.45) ABG HCO3 (22-28) ABG O2 Sat (Measured) (95-100) % Albert Test A-a Gradient a/A Ratio Hemoglobin Carboxyhemoglobin (0.0-6.9) % THgb Methemoglobin (1.4-1.5) % Temperature C POC O2 Flow Rate % Vent Mode Sodium (135-145) mmol/L Potassium (3.5-5.1) mmol/L Chloride (98-107) mmol/L Carbon Dioxide (22-30) mmol/L Anion Gap (5-15) MEQ/L BUN (7-17) mg/dL Creatinine (0.52-1.04) mg/dL Estimated GFR ML/MIN Glucose (74-106) mg/dL POC Glucometer 528 H* 436 H (50 to 500) mg/dL Hemoglobin A1c (4.5-6.0) % Calcium (8.4-10.2) mg/dL Total Bilirubin (0.2-1.3) mg/dL AST (14-36) U/L ALT (0-35) U/L Alkaline Phosphatase (38-126) U/L Troponin I < 0.012 (0.000-0.033) ng/mL Serum Total Protein (6.3-8.2) g/dL Albumin (3.5-5.0) g/dL Procalcitonin (0.030-0.080) ng/mL 04/09/24 04/09/24 04/09/24 Range/Units 05:28 05:28 06:43 WBC 11.0 H (3.98-10.04) x10^3/uL RBC 4.73 (3.93-5.22) x10^6/uL Hgb 13.2 (11.2-15.7) g/dL Hct 41.0 (34.1-44.9) % MCV 86.7 (79.4-94.8) fL MCH 27.9 (25.6-32.2) pg MCHC 32.2 (32.2-35.5) g/dL RDW 13.4 (11.7-14.4) % Plt Count 256 (182-369) x10^3/uL MPV 9.2 L (9.4-12.3) fL Gran % 90.4 H (34.0-71.1) % Immature Gran % (Auto) 0.6 H (0.001-0.429) % Nucleat RBC Rel Count 0.0 (0.00-0.2) % Eos # (Auto) 0 L (0.04-0.36) x10^3/uL Immature Gran # (Auto) 0.07 H (0.001-0.031) x10^3u/L Absolute Lymphs (auto) 0.83 L (1.18-3.74) x10^3/uL Absolute Monos (auto) 0.13 L (0.24-0.86) x10^3/uL Absolute Nucleated RBC 0.00 (0.00-0.012) x10^3u/L Lymphocytes % 7.6 L (19.3-51.7) % Monocytes % 1.2 L (4.7-12.5) % Eosinophils % 0.0 L (0.7-5.8) % Basophils % 0.2 (0.1-1.2) % Absolute Granulocytes 9.90 H (1.56-6.13) x10^3/uL Basophils # 0.02 (0.01-0.08) x10^3/uL Puncture Site RIGHT BRACHIAL pCO2 54 H (35-45) mmHg pO2 58 L (75-100) mmHg Base Excess 7.8 H (-2.0-2.0) O2 Saturation 86.0 L (94-100) g/dF ABG pH 7.41 (7.35-7.45) ABG HCO3 34.2 H* (22-28) ABG O2 Sat (Measured) 88.2 L (95-100) % Albert Test NOT APPLICABLE A-a Gradient 302 a/A Ratio 0.16 Hemoglobin 13.9 Carboxyhemoglobin 1.6 (0.0-6.9) % THgb Methemoglobin 0.9 L (1.4-1.5) % Temperature 37.0 C POC O2 Flow Rate 60 % Vent Mode Sodium 139 (135-145) mmol/L Potassium 4.1 4.4 (3.5-5.1) mmol/L Chloride 102 (98-107) mmol/L Carbon Dioxide 30 (22-30) mmol/L Anion Gap 10.6 (5-15) MEQ/L BUN 13 (7-17) mg/dL Creatinine 0.61 (0.52-1.04) mg/dL Estimated GFR 119.5 ML/MIN Glucose 386 H (74-106) mg/dL POC Glucometer (50 to 500) mg/dL Hemoglobin A1c (4.5-6.0) % Calcium 9.0 (8.4-10.2) mg/dL Total Bilirubin 0.50 (0.2-1.3) mg/dL AST 26 (14-36) U/L ALT 30 (0-35) U/L Alkaline Phosphatase 135 H (38-126) U/L Troponin I (0.000-0.033) ng/mL Serum Total Protein 7.4 (6.3-8.2) g/dL Albumin 3.9 (3.5-5.0) g/dL Procalcitonin (0.030-0.080) ng/mL 04/09/24 04/09/24 04/09/24 Range/Units 07:57 09:22 09:38 WBC (3.98-10.04) x10^3/uL RBC (3.93-5.22) x10^6/uL Hgb (11.2-15.7) g/dL Hct (34.1-44.9) % MCV (79.4-94.8) fL MCH (25.6-32.2) pg MCHC (32.2-35.5) g/dL RDW (11.7-14.4) % Plt Count (182-369) x10^3/uL MPV (9.4-12.3) fL Gran % (34.0-71.1) % Immature Gran % (Auto) (0.001-0.429) % Nucleat RBC Rel Count (0.00-0.2) % Eos # (Auto) (0.04-0.36) x10^3/uL Immature Gran # (Auto) (0.001-0.031) x10^3u/L Absolute Lymphs (auto) (1.18-3.74) x10^3/uL Absolute Monos (auto) (0.24-0.86) x10^3/uL Absolute Nucleated RBC (0.00-0.012) x10^3u/L Lymphocytes % (19.3-51.7) % Monocytes % (4.7-12.5) % Eosinophils % (0.7-5.8) % Basophils % (0.1-1.2) % Absolute Granulocytes (1.56-6.13) x10^3/uL Basophils # (0.01-0.08) x10^3/uL Puncture Site RIGHT BRACHIAL pCO2 52 H (35-45) mmHg pO2 68 L (75-100) mmHg Base Excess 5.2 H (-2.0-2.0) O2 Saturation 91.8 L (94-100) g/dF ABG pH 7.39 (7.35-7.45) ABG HCO3 31.5 H* (22-28) ABG O2 Sat (Measured) 94.2 L (95-100) % Albert Test NOT APPLICABLE A-a Gradient 509 a/A Ratio 0.12 Hemoglobin 13.8 Carboxyhemoglobin 1.9 (0.0-6.9) % THgb Methemoglobin 0.6 L (1.4-1.5) % Temperature 37.0 C POC O2 Flow Rate 90 % Vent Mode HFOV Sodium (135-145) mmol/L Potassium 4.0 (3.5-5.1) mmol/L Chloride (98-107) mmol/L Carbon Dioxide (22-30) mmol/L Anion Gap (5-15) MEQ/L BUN (7-17) mg/dL Creatinine (0.52-1.04) mg/dL Estimated GFR ML/MIN Glucose (74-106) mg/dL POC Glucometer 373 H 423 H (50 to 500) mg/dL Hemoglobin A1c (4.5-6.0) % Calcium (8.4-10.2) mg/dL Total Bilirubin (0.2-1.3) mg/dL AST (14-36) U/L ALT (0-35) U/L Alkaline Phosphatase (38-126) U/L Troponin I (0.000-0.033) ng/mL Serum Total Protein (6.3-8.2) g/dL Albumin (3.5-5.0) g/dL Procalcitonin (0.030-0.080) ng/mL 04/09/ Range/Units 11:22 WBC (3.98-10.04) x10^3/uL RBC (3.93-5.22) x10^6/uL Hgb (11.2-15.7) g/dL Hct (34.1-44.9) % MCV (79.4-94.8) fL MCH (25.6-32.2) pg MCHC (32.2-35.5) g/dL RDW (11.7-14.4) % Plt Count (182-369) x10^3/uL MPV (9.4-12.3) fL Gran % (34.0-71.1) % Immature Gran % (Auto) (0.001-0.429) % Nucleat RBC Rel Count (0.00-0.2) % Eos # (Auto) (0.04-0.36) x10^3/uL Immature Gran # (Auto) (0.001-0.031) x10^3u/L Absolute Lymphs (auto) (1.18-3.74) x10^3/uL Absolute Monos (auto) (0.24-0.86) x10^3/uL Absolute Nucleated RBC (0.00-0.012) x10^3u/L Lymphocytes % (19.3-51.7) % Monocytes % (4.7-12.5) % Eosinophils % (0.7-5.8) % Basophils % (0.1-1.2) % Absolute Granulocytes (1.56-6.13) x10^3/uL Basophils # (0.01-0.08) x10^3/uL Puncture Site pCO2 (35-45) mmHg pO2 (75-100) mmHg Base Excess (-2.0-2.0) O2 Saturation (94-100) g/dF ABG pH (7.35-7.45) ABG HCO3 (22-28) ABG O2 Sat (Measured) (95-100) % Albert Test A-a Gradient a/A Ratio Hemoglobin Carboxyhemoglobin (0.0-6.9) % THgb Methemoglobin (1.4-1.5) % Temperature C POC O2 Flow Rate % Vent Mode Sodium (135-145) mmol/L Potassium (3.5-5.1) mmol/L Chloride (98-107) mmol/L Carbon Dioxide (22-30) mmol/L Anion Gap (5-15) MEQ/L BUN (7-17) mg/dL Creatinine (0.52-1.04) mg/dL Estimated GFR ML/MIN Glucose (74-106) mg/dL POC Glucometer 414 H (50 to 500) mg/dL Hemoglobin A1c (4.5-6.0) % Calcium (8.4-10.2) mg/dL Total Bilirubin (0.2-1.3) mg/dL AST (14-36) U/L ALT (0-35) U/L Alkaline Phosphatase (38-126) U/L Troponin I (0.000-0.033) ng/mL Serum Total Protein (6.3-8.2) g/dL Albumin (3.5-5.0) g/dL Procalcitonin (0.030-0.080) ng/mL Micro Results-Entire Visit: Accuchecks Date 04/09/24 - Radiology Exams Ordered Rad Exams-Entire Visit: Radiology Procedures Category Date Time Status CHEST 1 VIEW (PORTABLE) Stat Exams 04/08/24 12:44 Completed CHEST WITH CONTRAST [CT] Stat Exams 04/08/24 13:53 Completed ECHO W/2D AND DOPPLER [US] Routine Exams 04/09/24 09:50 Taken - Procedures and Test Procedures and Tests throughout Hospitalization: Therapy Orders & Screens 04/08/24 12:52 Respiratory Therapy Assessment DAILY Comment: 04/08/24 16:46 Respiratory Therapy Consult ONCE Comment: Reason For Exam: 04/08/24 16:57 Oxygen Oxymask LPM 10 lpm Comment: Diagnosis: shortness of breath, cough 04/08/24 17:27 Respiratory Therapy Consult ONCE Comment: Reason For Exam: Diagnosis: shortness of breath, cough 04/08/24 17:52 Smoking Cessation Education ONCE Comment: Diagnosis: shortness of breath, cough Smoking Status: Current every day smoker How long have you smoked: >10yrs Have you smoked in the past 12 months: Yes Do you dip or chew tobacco: No 04/08/24 19:00 Respiratory Therapy Assessment DAILY Comment: Diagnosis: shortness of breath, cough 04/08/24 19:40 Incentive Spirometry Q1H Comment: Diagnosis: shortness of breath, cough 04/08/24 22:30 Flutter Therapy UD Comment: Diagnosis: shortness of breath, cough 04/09/24 07:07 Oxygen High Flow per RT 90% Comment: Diagnosis: shortness of breath, cough 04/09/24 09:58 BiPap/CPAP STAT Comment: Diagnosis: shortness of breath, cough <ALAINA GARCIA - Last Filed: 04/09/24 14:22> - Vitals & Intake/Output Vital Signs: Vital Signs Temperature 97.9 F 04/09/24 07:00 Pulse Rate 66 04/09/24 16:00 Respiratory Rate 18 04/09/24 14:50 Blood Pressure 125/79 04/09/24 13:01 O2 Sat by Pulse Oximetry 97 04/09/24 14:50 Intake & Output: Intake & Output 04/07/24 04/08/24 04/09/24 04/10/24 11:59 11:59 11:59 11:59 Intake Total 1784 360 Balance 1784 360 Weight 128.3 kg - Lab Result Diagrams: 04/09/24 05:28 04/09/24 05:28 Lab Results-Last 24 Hrs: Lab Results-Last 24 Hours 04/08/24 04/08/24 04/08/24 Range/Units 13:23 18:10 19:45 WBC (3.98-10.04) x10^3/uL RBC (3.93-5.22) x10^6/uL Hgb (11.2-15.7) g/dL Hct (34.1-44.9) % MCV (79.4-94.8) fL MCH (25.6-32.2) pg MCHC (32.2-35.5) g/dL RDW (11.7-14.4) % Plt Count (182-369) x10^3/uL MPV (9.4-12.3) fL Gran % (34.0-71.1) % Immature Gran % (Auto) (0.001-0.429) % Nucleat RBC Rel Count (0.00-0.2) % Eos # (Auto) (0.04-0.36) x10^3/uL Immature Gran # (Auto) (0.001-0.031) x10^3u/L Absolute Lymphs (auto) (1.18-3.74) x10^3/uL Absolute Monos (auto) (0.24-0.86) x10^3/uL Absolute Nucleated RBC (0.00-0.012) x10^3u/L Lymphocytes % (19.3-51.7) % Monocytes % (4.7-12.5) % Eosinophils % (0.7-5.8) % Basophils % (0.1-1.2) % Absolute Granulocytes (1.56-6.13) x10^3/uL Basophils # (0.01-0.08) x10^3/uL Puncture Site pCO2 (35-45) mmHg pO2 (75-100) mmHg Base Excess (-2.0-2.0) O2 Saturation (94-100) g/dF ABG pH (7.35-7.45) ABG HCO3 (22-28) ABG O2 Sat (Measured) (95-100) % Albert Test A-a Gradient a/A Ratio Hemoglobin Carboxyhemoglobin (0.0-6.9) % THgb Methemoglobin (1.4-1.5) % Temperature C POC O2 Flow Rate % Vent Mode Sodium (135-145) mmol/L Potassium (3.5-5.1) mmol/L Chloride (98-107) mmol/L Carbon Dioxide (22-30) mmol/L Anion Gap (5-15) MEQ/L BUN (7-17) mg/dL Creatinine (0.52-1.04) mg/dL Estimated GFR ML/MIN Glucose (74-106) mg/dL POC Glucometer 528 H* (50 to 500) mg/dL Hemoglobin A1c 8.77 H (4.5-6.0) % Calcium (8.4-10.2) mg/dL Total Bilirubin (0.2-1.3) mg/dL AST (14-36) U/L ALT (0-35) U/L Alkaline Phosphatase (38-126) U/L Troponin I < 0.012 (0.000-0.033) ng/mL Serum Total Protein (6.3-8.2) g/dL Albumin (3.5-5.0) g/dL 04/08/24 04/08/24 04/09/24 Range/Units 20:50 22:17 05:28 WBC 11.0 H (3.98-10.04) x10^3/uL RBC 4.73 (3.93-5.22) x10^6/uL Hgb 13.2 (11.2-15.7) g/dL Hct 41.0 (34.1-44.9) % MCV 86.7 (79.4-94.8) fL MCH 27.9 (25.6-32.2) pg MCHC 32.2 (32.2-35.5) g/dL RDW 13.4 (11.7-14.4) % Plt Count 256 (182-369) x10^3/uL MPV 9.2 L (9.4-12.3) fL Gran % 90.4 H (34.0-71.1) % Immature Gran % (Auto) 0.6 H (0.001-0.429) % Nucleat RBC Rel Count 0.0 (0.00-0.2) % Eos # (Auto) 0 L (0.04-0.36) x10^3/uL Immature Gran # (Auto) 0.07 H (0.001-0.031) x10^3u/L Absolute Lymphs (auto) 0.83 L (1.18-3.74) x10^3/uL Absolute Monos (auto) 0.13 L (0.24-0.86) x10^3/uL Absolute Nucleated RBC 0.00 (0.00-0.012) x10^3u/L Lymphocytes % 7.6 L (19.3-51.7) % Monocytes % 1.2 L (4.7-12.5) % Eosinophils % 0.0 L (0.7-5.8) % Basophils % 0.2 (0.1-1.2) % Absolute Granulocytes 9.90 H (1.56-6.13) x10^3/uL Basophils # 0.02 (0.01-0.08) x10^3/uL Puncture Site pCO2 (35-45) mmHg pO2 (75-100) mmHg Base Excess (-2.0-2.0) O2 Saturation (94-100) g/dF ABG pH (7.35-7.45) ABG HCO3 (22-28) ABG O2 Sat (Measured) (95-100) % Albert Test A-a Gradient a/A Ratio Hemoglobin Carboxyhemoglobin (0.0-6.9) % THgb Methemoglobin (1.4-1.5) % Temperature C POC O2 Flow Rate % Vent Mode Sodium (135-145) mmol/L Potassium (3.5-5.1) mmol/L Chloride (98-107) mmol/L Carbon Dioxide (22-30) mmol/L Anion Gap (5-15) MEQ/L BUN (7-17) mg/dL Creatinine (0.52-1.04) mg/dL Estimated GFR ML/MIN Glucose (74-106) mg/dL POC Glucometer 436 H (50 to 500) mg/dL Hemoglobin A1c (4.5-6.0) % Calcium (8.4-10.2) mg/dL Total Bilirubin (0.2-1.3) mg/dL AST (14-36) U/L ALT (0-35) U/L Alkaline Phosphatase (38-126) U/L Troponin I < 0.012 (0.000-0.033) ng/mL Serum Total Protein (6.3-8.2) g/dL Albumin (3.5-5.0) g/dL 04/09/24 04/09/24 04/09/24 Range/Units 05:28 06:43 07:57 WBC (3.98-10.04) x10^3/uL RBC (3.93-5.22) x10^6/uL Hgb (11.2-15.7) g/dL Hct (34.1-44.9) % MCV (79.4-94.8) fL MCH (25.6-32.2) pg MCHC (32.2-35.5) g/dL RDW (11.7-14.4) % Plt Count (182-369) x10^3/uL MPV (9.4-12.3) fL Gran % (34.0-71.1) % Immature Gran % (Auto) (0.001-0.429) % Nucleat RBC Rel Count (0.00-0.2) % Eos # (Auto) (0.04-0.36) x10^3/uL Immature Gran # (Auto) (0.001-0.031) x10^3u/L Absolute Lymphs (auto) (1.18-3.74) x10^3/uL Absolute Monos (auto) (0.24-0.86) x10^3/uL Absolute Nucleated RBC (0.00-0.012) x10^3u/L Lymphocytes % (19.3-51.7) % Monocytes % (4.7-12.5) % Eosinophils % (0.7-5.8) % Basophils % (0.1-1.2) % Absolute Granulocytes (1.56-6.13) x10^3/uL Basophils # (0.01-0.08) x10^3/uL Puncture Site RIGHT BRACHIAL pCO2 54 H (35-45) mmHg pO2 58 L (75-100) mmHg Base Excess 7.8 H (-2.0-2.0) O2 Saturation 86.0 L (94-100) g/dF ABG pH 7.41 (7.35-7.45) ABG HCO3 34.2 H* (22-28) ABG O2 Sat (Measured) 88.2 L (95-100) % Albert Test NOT APPLICABLE A-a Gradient 302 a/A Ratio 0.16 Hemoglobin 13.9 Carboxyhemoglobin 1.6 (0.0-6.9) % THgb Methemoglobin 0.9 L (1.4-1.5) % Temperature 37.0 C POC O2 Flow Rate 60 % Vent Mode Sodium 139 (135-145) mmol/L Potassium 4.1 4.4 (3.5-5.1) mmol/L Chloride 102 (98-107) mmol/L Carbon Dioxide 30 (22-30) mmol/L Anion Gap 10.6 (5-15) MEQ/L BUN 13 (7-17) mg/dL Creatinine 0.61 (0.52-1.04) mg/dL Estimated GFR 119.5 ML/MIN Glucose 386 H (74-106) mg/dL POC Glucometer 373 H (50 to 500) mg/dL Hemoglobin A1c (4.5-6.0) % Calcium 9.0 (8.4-10.2) mg/dL Total Bilirubin 0.50 (0.2-1.3) mg/dL AST 26 (14-36) U/L ALT 30 (0-35) U/L Alkaline Phosphatase 135 H (38-126) U/L Troponin I (0.000-0.033) ng/mL Serum Total Protein 7.4 (6.3-8.2) g/dL Albumin 3.9 (3.5-5.0) g/dL 04/09/24 04/09/24 04/09/24 Range/Units 09:22 09:38 11:22 WBC (3.98-10.04) x10^3/uL RBC (3.93-5.22) x10^6/uL Hgb (11.2-15.7) g/dL Hct (34.1-44.9) % MCV (79.4-94.8) fL MCH (25.6-32.2) pg MCHC (32.2-35.5) g/dL RDW (11.7-14.4) % Plt Count (182-369) x10^3/uL MPV (9.4-12.3) fL Gran % (34.0-71.1) % Immature Gran % (Auto) (0.001-0.429) % Nucleat RBC Rel Count (0.00-0.2) % Eos # (Auto) (0.04-0.36) x10^3/uL Immature Gran # (Auto) (0.001-0.031) x10^3u/L Absolute Lymphs (auto) (1.18-3.74) x10^3/uL Absolute Monos (auto) (0.24-0.86) x10^3/uL Absolute Nucleated RBC (0.00-0.012) x10^3u/L Lymphocytes % (19.3-51.7) % Monocytes % (4.7-12.5) % Eosinophils % (0.7-5.8) % Basophils % (0.1-1.2) % Absolute Granulocytes (1.56-6.13) x10^3/uL Basophils # (0.01-0.08) x10^3/uL Puncture Site RIGHT BRACHIAL pCO2 52 H (35-45) mmHg pO2 68 L (75-100) mmHg Base Excess 5.2 H (-2.0-2.0) O2 Saturation 91.8 L (94-100) g/dF ABG pH 7.39 (7.35-7.45) ABG HCO3 31.5 H* (22-28) ABG O2 Sat (Measured) 94.2 L (95-100) % Albert Test NOT APPLICABLE A-a Gradient 509 a/A Ratio 0.12 Hemoglobin 13.8 Carboxyhemoglobin 1.9 (0.0-6.9) % THgb Methemoglobin 0.6 L (1.4-1.5) % Temperature 37.0 C POC O2 Flow Rate 90 % Vent Mode HFOV Sodium (135-145) mmol/L Potassium 4.0 (3.5-5.1) mmol/L Chloride (98-107) mmol/L Carbon Dioxide (22-30) mmol/L Anion Gap (5-15) MEQ/L BUN (7-17) mg/dL Creatinine (0.52-1.04) mg/dL Estimated GFR ML/MIN Glucose (74-106) mg/dL POC Glucometer 423 H 414 H (50 to 500) mg/dL Hemoglobin A1c (4.5-6.0) % Calcium (8.4-10.2) mg/dL Total Bilirubin (0.2-1.3) mg/dL AST (14-36) U/L ALT (0-35) U/L Alkaline Phosphatase (38-126) U/L Troponin I (0.000-0.033) ng/mL Serum Total Protein (6.3-8.2) g/dL Albumin (3.5-5.0) g/dL 04/09/24 04/09/24 Range/Units 14:23 15:37 WBC (3.98-10.04) x10^3/uL RBC (3.93-5.22) x10^6/uL Hgb (11.2-15.7) g/dL Hct (34.1-44.9) % MCV (79.4-94.8) fL MCH (25.6-32.2) pg MCHC (32.2-35.5) g/dL RDW (11.7-14.4) % Plt Count (182-369) x10^3/uL MPV (9.4-12.3) fL Gran % (34.0-71.1) % Immature Gran % (Auto) (0.001-0.429) % Nucleat RBC Rel Count (0.00-0.2) % Eos # (Auto) (0.04-0.36) x10^3/uL Immature Gran # (Auto) (0.001-0.031) x10^3u/L Absolute Lymphs (auto) (1.18-3.74) x10^3/uL Absolute Monos (auto) (0.24-0.86) x10^3/uL Absolute Nucleated RBC (0.00-0.012) x10^3u/L Lymphocytes % (19.3-51.7) % Monocytes % (4.7-12.5) % Eosinophils % (0.7-5.8) % Basophils % (0.1-1.2) % Absolute Granulocytes (1.56-6.13) x10^3/uL Basophils # (0.01-0.08) x10^3/uL Puncture Site pCO2 (35-45) mmHg pO2 (75-100) mmHg Base Excess (-2.0-2.0) O2 Saturation (94-100) g/dF ABG pH (7.35-7.45) ABG HCO3 (22-28) ABG O2 Sat (Measured) (95-100) % Albert Test A-a Gradient a/A Ratio Hemoglobin Carboxyhemoglobin (0.0-6.9) % THgb Methemoglobin (1.4-1.5) % Temperature C POC O2 Flow Rate % Vent Mode Sodium (135-145) mmol/L Potassium (3.5-5.1) mmol/L Chloride (98-107) mmol/L Carbon Dioxide (22-30) mmol/L Anion Gap (5-15) MEQ/L BUN (7-17) mg/dL Creatinine (0.52-1.04) mg/dL Estimated GFR ML/MIN Glucose (74-106) mg/dL POC Glucometer 373 H 379 H (50 to 500) mg/dL Hemoglobin A1c (4.5-6.0) % Calcium (8.4-10.2) mg/dL Total Bilirubin (0.2-1.3) mg/dL AST (14-36) U/L ALT (0-35) U/L Alkaline Phosphatase (38-126) U/L Troponin I (0.000-0.033) ng/mL Serum Total Protein (6.3-8.2) g/dL Albumin (3.5-5.0) g/dL Micro Results-Entire Visit: Accuchecks Date 04/09/24 Date 04/09/24 Date 04/09/24 - Radiology Exams Ordered Rad Exams-Entire Visit: Radiology Procedures Category Date Time Status CHEST 1 VIEW (PORTABLE) Stat Exams 04/08/24 12:44 Completed CHEST WITH CONTRAST [CT] Stat Exams 04/08/24 13:53 Completed ECHO W/2D AND DOPPLER [US] Routine Exams 04/09/24 09:50 Taken - Procedures and Test Procedures and Tests throughout Hospitalization: Therapy Orders & Screens 04/08/24 12:52 Respiratory Therapy Assessment DAILY Comment: 04/08/24 16:46 Respiratory Therapy Consult ONCE Comment: Reason For Exam: 04/08/24 16:57 Oxygen Oxymask LPM 10 lpm Comment: Diagnosis: shortness of breath, cough 12/12/24 17:27 Respiratory Therapy Consult ONCE Comment: Reason For Exam: Diagnosis: shortness of breath, cough 04/08/24 17:52 Smoking Cessation Education ONCE Comment: Diagnosis: shortness of breath, cough Smoking Status: Current every day smoker How long have you smoked: >10yrs Have you smoked in the past 12 months: Yes Do you dip or chew tobacco: No 04/08/24 19:00 Respiratory Therapy Assessment DAILY Comment: Diagnosis: shortness of breath, cough 04/08/24 19:40 Incentive Spirometry Q1H Comment: Diagnosis: shortness of breath, cough 04/08/24 22:30 Flutter Therapy UD Comment: Diagnosis: shortness of breath, cough 04/09/24 07:07 Oxygen High Flow per RT 90% Comment: Diagnosis: shortness of breath, cough 04/09/24 09:58 BiPap/CPAP STAT Comment: Diagnosis: shortness of breath, cough <GREGORY GARCIA - Last Filed: 04/09/24 18:40> Discharge Exam General Appearance: no apparent distress Neurologic Exam: alert, oriented x 3, cooperative Eye Exam: PERRL Ears, Nose, Throat Exam: normal ENT inspection Neck Exam: normal inspection Respiratory Exam: crackles/rales, rhonchi, wheezing Cardiovascular Exam: regular rate/rhythm, normal heart sounds Gastrointestinal/Abdomen Exam: soft, normal bowel sounds Pelvic Exam: deferred Rectal Exam: deferred Back Exam: normal inspection Extremity Exam: normal inspection Skin Exam: normal color <ALAINA GARCIA L. - Last Filed: 04/09/24 14:22> Final Diagnosis/Problem List - Final Discharge Diagnosis/Problem (1) Sepsis Status: Acute (2) Bilateral pneumonia Status: Acute Code(s): J18.9 - PNEUMONIA, UNSPECIFIED ORGANISM (3) Smoker Status: Acute Code(s): F17.200 - NICOTINE DEPENDENCE, UNSPECIFIED, UNCOMPLICATED (4) Acute hypoxic respiratory failure Status: Acute Code(s): J96.01 - ACUTE RESPIRATORY FAILURE WITH HYPOXIA (5) Hyperglycemia Status: Acute Code(s): R73.9 - HYPERGLYCEMIA, UNSPECIFIED <ETHAN GARCIAICA L. - Last Filed: 04/09/24 14:22> <ALAINA GARCIA L. - Last Filed: 04/09/24 14:22> <GREGORY GARCIA - Last Filed: 04/09/24 18:40> - Discharge Disposition: DC TO OTHER HOSP Condition: Fair Prescriptions: New Albuterol/Ipratropium 3ml Neb* [DUONEB 0.5-3 MG/3 ml Neb] 3 ml IH Q4HRT Enoxaparin Sodium [Enoxaparin Sodium] 40 mg SQ DAILY Insulin Glargine [Lantus Insulin] 15 unit SQ QAM unit Nicotine 21 mg [Nicoderm CQ 21 MG] 21 mg TOP Q24H patch Albuterol 2.5 mg/3 ml Neb [Proventil 2.5 mg/3 ml Neb] 2.5 mg IH Q4H PRN PRN PRN Reason: Shortness Of Breath/Wheezing Ceftriaxone Sodium [ROCEPHIN 1 GM / 100 ML NaCl] 1 gm IV Q24H10 iv piggy Methylprednisolone Sod Suc 40M [solu-MEDROL] 40 mg IV Q8HT Acetaminophen 325 mg [Tylenol 325 mg] 650 mg PO Q4H PRN PRN tablet PRN Reason: Pain, Fever, Headache Azithromycin 500 mg/250 ml [Zithromax 500 MG/ 250 ML NaCl Premix] 500 mg IV Q24H10 iv piggy Ondansetron HCl 4 mg/2 ml [Zofran 4 MG/2 ML VIAL] 4 mg IV Q6H PRN PRN PRN Reason: Nausea/Vomiting Follow up with: DAV COLE [ACTIVE STAFF] - TOM ZAPATA MD [Primary Care Provider] - YON Encounter - YON Encounter Attestation YON Encounter Attestation: "IhavepersonallyseenandJOSE RaviYA andhavediscussed pertinent aspects of their care with Alaina Anthony agree with the history, physical exam (any modifications based on my personal exam will be noted below), assessment, and plan as outlined in original note. Please see immediately below for my summary of findings and additional assessment and plan along with any meaningful corrections/explanations to the Subjective/Objective portions of the YON note will be noted." My portion of the encounter took place via telemedicine. -Patient with worsening hypoxic respiratory failure requiring high flow oxygen, then switched to AVAPS. Transferred to higher level of care. Sign out given to site leader at [place] and I also spoke with patient and her parents at the bedside in detail. <GREGORY GARCIA - Last Filed: 04/09/24 18:40>
[2024-04-09 14:55] VITALS: PULSE 66; RESP 18; O2SAT 97
[2024-04-09] MEDS ORDERED: HUMALOG SQ SCH (17:00)
== END 2024-04-09 17:04 | DRG 871 ==
LOC: ED 12:25 → OBSVTOIN 16:30 → MED SURG 16:30 → ICU 04-09 09:50
PROVIDERS: ADMIT Internal Medicine; ATTEND Internal Medicine
DX: A41.9 Sepsis, unspecified organism (principal); J18.9 Pneumonia, unspecified organism; J96.01 Acute respiratory failure with hypoxia; F17.200 Nicotine dependence, unspecified, uncomplicated; E11.65 Type 2 diabetes mellitus with hyperglycemia
CPT/HCPCS: 0241U; 36415; 36600; 71045; 71260; 80053; 82375; 82803; 82947; 83036; 83605; 83735; 83880; 84145; 84484; 84703; 85025; 85379; 87040; 93005; 93041; 93306; 94002; 94640; 94667; 94762; 96365; 96374; 96375; 99284; J0456; J0696; J1650; J1817; J2919; J7609; Q3014; A9270-GY